=== PATIENT | male | born 1955 | race Caucasian/White ===

== ENCOUNTER 2020-04-22 09:32 | Observation (INO) | payer MEDICARE ==
[2020-04-22] MEDS ORDERED: SODIUM CHLORIDE 0.9% 500 ML 500 ML IV ONE (09:59)
[2020-04-22] MEDS ORDERED: HYDROmorphone 0.5 MG/0.5 ML SYRINGE IVP STA (10:02)
[2020-04-22 10:22] LABS: Basophils # (A) 0.1 k/uL (0-0.2); Basophils % (A) 1 %; Eosinophils # (A) 0.1 k/uL (0-0.7); Eosinophils % (A) 1 %; HCT 51.2 % (39.0-53.0); HGB 17.3 gm/dL (13.0-17.5); Lymphocytes # (A) 0.8 k/uL (1.0-4.8); Lymphocytes % (A) 7 %; MCH 32.8 pg (25.0-35.0); MCHC 33.7 g/dL (31.0-37.0); MCV 97.2 fL (80.0-100.0); Mean Platelet Volume 7.5; Monocytes # (A) 0.4 k/uL (0-1.0); Monocytes % (A) 4 %; Neutrophils # (A) 9.9 k/uL (1.3-7.7); Neutrophils % (A) 87 %; Platelet Count 228 k/uL (150-450); RBC 5.27 m/uL (4.30-5.90); RDW 12.8 % (11.5-15.5); WBC 11.4 k/uL (3.8-10.6)
[2020-04-22 10:30] LABS: INR 2.6 (<1.2); Partial Thromboplastin Time 31.8 sec (22.0-30.0); Prothrombin Time 25.2 sec (9.0-12.0)
--- NOTE | 2020-04-22 10:36 | XR ---
EXAMINATION TYPE: XR chest 2V DATE OF EXAM: 04/22/2020 COMPARISON: Chest x-ray 05/16/2010 HISTORY: Altered mental status, pain from fall TECHNIQUE: Frontal and lateral views of the chest are obtained. FINDINGS: There is no focal air space opacity, pleural effusion, or pneumothorax seen. The cardiac silhouette size is within normal limits. The osseous structures are intact. Overlying leads are not ed. Flattening hemidiaphragms and increased AP diameter chest suggests underlying COPD. There is thor acic spondylosis. IMPRESSION: No acute cardiopulmonary process.
--- NOTE | 2020-04-22 10:37 | XR ---
Thoracic spine HISTORY: Trauma and pain 2 views of the thoracic spine Aorta is dense. There is multilevel thoracic spondylosis. Thoracic vertebral bodies show preserved he ight and alignment. Bone mineralization is maintained. Bridging anterior osteophytes along the thorac ic vertebral bodies with preservation of disc space suggests diffuse idiopathic skeletal hyperostosis . IMPRESSION: No acute fracture or subluxation.
[2020-04-22] MEDS ORDERED: ONDANSETRON 4 MG/2 ML VIAL IVP STA (10:38)
[2020-04-22 10:40] LABS: Anion Gap 17 mmol/L; Blood Urea Nitrogen 14 mg/dL (9-20); Carbon Dioxide 19 mmol/L (22-30); Chloride 101 mmol/L (98-107); Glucose 176 mg/dL (74-99); Sodium 137 mmol/L (137-145)
[2020-04-22 10:41] LABS: ALT 25 U/L (4-49); AST 33 U/L (17-59); African American GFR (CKD) 72 (>60 ml/min/1.73 sqM); Albumin 4.4 g/dL (3.5-5.0); Alcohol <10 mg/dL; Alkaline Phosphatase 66 U/L (38-126); Non-African American GFR(CKD) 63 (>60 ml/min/1.73 sqM); Total Bilirubin 1.4 mg/dL (0.2-1.3); Total Protein 7.5 g/dL (6.3-8.2)
--- NOTE | 2020-04-22 10:42 | ED ---
General Adult HPI - General Chief complaint: Altered Mental Status Stated complaint: altered Time Seen by Provider: 04/22/20 09:35 Source: patient, EMS, RN notes reviewed, old records reviewed Mode of arrival: EMS Limitations: altered mental status - History of Present Illness Initial comments: This a 64-year-old male who presents emergency Department with a past medical history significant for hypertension. Patient was brought into the emergency department because he was altered at home. According to the girlfriend she heard some banging around in the bathroom when she went into see what was going on and he was stumbling around and was not responding to her accurately. EMS was called when EMS arrived he still was altered and according to the patient he does not remember any of this and in fact he states he woke up this morning went back to bed and the next he knows he woke up and admits. Patient complains of back pain which she states she always has but it seems to be worse today and with any movement it increases. Patient denies any headache patient denies numbness weakness. Patient denies any lightheadedness or dizziness. Patient denies any chest pain palpitations difficulty breathing shortness of breath. Patient denies any recent fever chills or cough. Patient denies abdominal pain patient denies nausea vomiting or diarrhea. Patient denies any extremity pain. Patient states any movement with her it's bending or twisting his pretty significant pain in the lower thoracic spine. - Related Data Home Medications Medication Instructions Recorded Confirmed Bumetanide [Bumex] 1 mg PO BID@0700,1500 08/23/15 04/22/20 Doxazosin Mesylate 2 mg PO HS@2300 08/23/15 04/22/20 Isosorbide Mononitrate [Isosorbide 30 mg PO DAILY@69908/23/15 04/22/20 Mononitrate ER] Lisinopril [Prinivil] 5 mg PO HS@2300 08/23/15 04/22/20 Lovastatin [Mevacor] 20 mg PO HS@0 08/23/15 04/22/20 Potassium Chloride [Klor-Con 20] 20 meq PO DAILY@0700 08/23/15 04/22/20 amLODIPine BESYLATE [Norvasc] 10 mg PO DAILY@0700 05/30/16 01/28/21 carvediloL [Coreg] 12.5 mg PO BID@0700,1500 08/23/15 04/22/20 cloNIDine HCL 0.3 mg PO TID@0700,1500,2300 08/23/15 04/22/20 Warfarin Sodium 4 mg PO DAILY@1500 04/22/20 04/22/20 glipiZIDE [Glucotrol] 5 mg PO DAILY@0700 04/22/20 04/22/20 Allergies Allergy/AdvReac Type Severity Reaction Status Date / Time naproxen [From Naprosyn] Allergy Unknown Verified 04/22/20 11:23 Penicillins Allergy Swelling Verified 04/22/20 11:23 Review of Systems ROS Statement: Those systems with pertinent positive or pertinent negative responses have been documented in the HPI. ROS Other: All systems not noted in ROS Statement are negative. Past Medical History Past Medical History: Atrial Fibrillation, Diabetes Mellitus, Hypertension History of Any Multi-Drug Resistant Organisms: None Reported Past Surgical History: Orthopedic Surgery Additional Past Surgical History / Comment(s): caqrpal tunnel Past Psychological History: No Psychological Hx Reported Smoking Status: Never smoker Past Alcohol Use History: None Reported Past Drug Use History: None Reported, Marijuana General Exam - General Exam Comments Initial Comments: GENERAL: Patient is well-developed and well-nourished. Patient is nontoxic and well- hydrated and is in mild distress. ENT: Neck is soft and supple. No significant lymphadenopathy is noted. Oropharynx is clear. Moist mucous membranes. Neck has full range of motion without eliciting any pain. EYES: The sclera were anicteric and conjunctiva were pink and moist. Extraocular movements were intact and pupils were equal round and reactive to light. Eyelids were unremarkable. PULMONARY: Unlabored respirations. Good breath sounds bilaterally. No audible rales rhonchi or wheezing was noted. CARDIOVASCULAR: There is a regular rate and rhythm without any murmurs gallops or rubs. ABDOMEN: Soft and nontender with normal bowel sounds. SKIN: Skin is clear with no lesions or rashes and otherwise unremarkable. NEUROLOGIC: Patient is alert and oriented x3. Cranial nerves II through XII are grossly intact. Motor and sensory are also intact. Normal speech, volume and content. Symmetrical smile. MUSCULOSKELETAL: Normal extremities with adequate strength and full range of motion. No lower extremity swelling or edema. No calf tenderness. Patient has tenderness in the lower thoracic spine there is no area of swelling no redness and signs of trauma. LYMPHATICS: No significant lymphadenopathy is noted PSYCHIATRIC: Normal psychiatric evaluation. Limitations: altered mental status Course Vital Signs 04/22/20 04/22/20 04/22/20 09:37 09:53 10:37 Temperature 98 F Pulse Rate 64 61 57 L Respiratory 18 18 18 Rate Blood Pressure 176/128 131/72 153/79 O2 Sat by Pulse 94 L 94 L 94 L Oximetry 04/22/20 11:20 Temperature Pulse Rate 61 Respiratory 18 Rate Blood Pressure 130/83 O2 Sat by Pulse 93 L Oximetry Medical Decision Making - Medical Decision Making EKG show atrial fibrillation at a rate of 58 bpm QRS is 124 QT interval 464 QTC is 455. Patient's EKG shows no ST segment elevation or depression. After about 2 hours ago from came back and told the story that she found the patient on all fours in the bathroom she is not aware if he fell or not but he was completely confused and told EMS to come from the home. She states she has not seen him like this ever before. CT of the brain shows no acute abnormality. Chest x-ray shows no acute abnormality. T-spine x-ray shows no acute abnormality. - Lab Data Result diagrams: 04/22/20 10:04 04/22/20 10:04 Lab Results 04/22/20 04/22/20 04/22/20 Range/Units 10:04 10:04 10:04 WBC 11.4 H (3.8-10.6) k/uL RBC 5.27 (4.30-5.90) m/uL Hgb 17.3 (13.0-17.5) gm/dL Hct 51.2 (39.0-53.0) % MCV 97.2 (80.0-100.0) fL MCH 32.8 (25.0-35.0) pg MCHC 33.7 (31.0-37.0) g/dL RDW 12.8 (11.5-15.5) % Plt Count 228 (150-450) k/uL MPV 7.5 Neutrophils % 87 % Lymphocytes % 7 % Monocytes % 4 % Eosinophils % 1 % Basophils % 1 % Neutrophils # 9.9 H (1.3-7.7) k/uL Lymphocytes # 0.8 L (1.0-4.8) k/uL Monocytes # 0.4 (0-1.0) k/uL Eosinophils # 0.1 (0-0.7) k/uL Basophils # 0.1 (0-0.2) k/uL PT 25.2 H (9.0-12.0) sec INR 2.6 H (<1.2) APTT 31.8 H (22.0-30.0) sec Sodium 137 (137-145) mmol/L Potassium 4.3 (3.5-5.1) mmol/L Chloride 101 (98-107) mmol/L Carbon Dioxide 19 L (22-30) mmol/L Anion Gap 17 mmol/L BUN 14 (9-20) mg/dL Creatinine 1.21 (0.66-1.25) mg/dL Est GFR (CKD-EPI)AfAm 72 (>60 ml/min/1.73 sqM) Est GFR (CKD-EPI)NonAf 63 (>60 ml/min/1.73 sqM) Glucose 176 H (74-99) mg/dL POC Glucose (mg/dL) (75-99) mg/dL POC Glu Suede Brusher ID Calcium 9.0 (8.4-10.2) mg/dL Total Bilirubin 1.4 H (0.2-1.3) mg/dL AST 33 (17-59) U/L ALT 25 (4-49) U/L Alkaline Phosphatase 66 (38-126) U/L Troponin I (0.000-0.034) ng/mL Total Protein 7.5 (6.3-8.2) g/dL Albumin 4.4 (3.5-5.0) g/dL Serum Alcohol <10 mg/dL 04/22/20 04/22/20 Range/Units 10:04 11:38 WBC (3.8-10.6) k/uL RBC (4.30-5.90) m/uL Hgb (13.0-17.5) gm/dL Hct (39.0-53.0) % MCV (80.0-100.0) fL MCH (25.0-35.0) pg MCHC (31.0-37.0) g/dL RDW (11.5-15.5) % Plt Count (150-450) k/uL MPV Neutrophils % % Lymphocytes % % Monocytes % % Eosinophils % % Basophils % % Neutrophils # (1.3-7.7) k/uL Lymphocytes # (1.0-4.8) k/uL Monocytes # (0-1.0) k/uL Eosinophils # (0-0.7) k/uL Basophils # (0-0.2) k/uL PT (9.0-12.0) sec INR (<1.2) APTT (22.0-30.0) sec Sodium (137-145) mmol/L Potassium (3.5-5.1) mmol/L Chloride (98-107) mmol/L Carbon Dioxide (22-30) mmol/L Anion Gap mmol/L BUN (9-20) mg/dL Creatinine (0.66-1.25) mg/dL Est GFR (CKD-EPI)AfAm (>60 ml/min/1.73 sqM) Est GFR (CKD-EPI)NonAf (>60 ml/min/1.73 sqM) Glucose (74-99) mg/dL POC Glucose (mg/dL) 124 H (75-99) mg/dL POC Glu Suede Brusher ID Bela Camacho Calcium (8.4-10.2) mg/dL Total Bilirubin (0.2-1.3) mg/dL AST (17-59) U/L ALT (4-49) U/L Alkaline Phosphatase (38-126) U/L Troponin I <0.012 (0.000-0.034) ng/mL Total Protein (6.3-8.2) g/dL Albumin (3.5-5.0) g/dL Serum Alcohol mg/dL Disposition Clinical Impression: Altered mental status, Thoracic back pain Disposition: ADMITTED IP TO THIS HOSP Referrals: Herson Holden MD [Primary Care Provider] - 1-2 days Time of Disposition: 12:17
[2020-04-22 10:46] LABS: Potassium 4.3 mmol/L (3.5-5.1)
[2020-04-22 11:40] LABS: Glucose,Whole Blood 124 mg/dL (75-99)
[2020-04-22] MEDS ORDERED: SODIUM CHLORIDE 0.9% 1,000 ML IV ONE (12:17)
--- NOTE | 2020-04-22 12:39 | CT ---
EXAMINATION TYPE: CT brain wo con DATE OF EXAM: 04/22/2020 COMPARISON: None HISTORY: 64-year-old male Fall today with mental status changes. TECHNIQUE: Examination was done in axial plane without intravenous contrast. Coronal and sagittal r econstructions performed. CT DLP: 1202.4 mGycm Automated exposure control for dose reduction was used. FINDINGS: There is no evidence of acute intracranial hemorrhage, acute ischemic changes, mass, mass-effect, or extra-axial fluid collection. There is no effacement of cerebral sulci or basal subarachnoid cister ns. There is no hydrocephalus. There is no midline shift. Loco-white matter distinction is preserv ed. Mild patchy white matter hypodensities in both cerebral hemispheres. Moderate mucosal thickening ethmoid air cells. Moderate mucosal thickening in inferior frontal sinuse s. Leftward nasal septal deviation. Mastoid air cells well pneumatized. Orbits and globes are intact. IMPRESSION: Mild patchy burden of chronic small vessel ischemic disease. No acute intracranial abnormality seen. Moderate chronic ethmoid and frontal sinus disease.
[2020-04-22 13:44] LABS: Amorphous Sediment,Urine Rare /hpf; Appearance,Urine Clear (Clear); Bilirubin,Urine Negative (Negative); Blood,Urine Trace (Negative); Color,Urine Light Yellow; Glucose,Urine (UA) Negative (Negative); Hyaline Casts,Urine 1 /lpf (0-2); Ketones,Urine Negative (Negative); Leukocyte Esterase,Urine Negative (Negative); Mucus,Urine Rare /hpf; Nitrite,Urine Negative (Negative); PH, Urine 6.5 (5.0-8.0); Protein,Urine 2+ (Negative); RBC,Urine 1 /hpf (0-5); Specific Gravity,Urine 1.008 (1.001-1.035); Squamous Epithelial Cell,Urine <1 /hpf (0-4); Urobilinogen,Urine <2.0 mg/dL (<2.0); WBC,Urine 3 /hpf (0-5)
[2020-04-22 13:57] LABS: Amphetamine Screen,Urine Not Detected (NotDetected); Barbiturate Screen,Urine Not Detected (NotDetected); Benzodiazepines Screen,Urine Not Detected (NotDetected); Cocaine Screen,Urine Not Detected (NotDetected); Methadone Screen, Urine Not Detected (NotDetected); Opiate Screen,Urine Not Detected (NotDetected); Oxycodone Screen, Urine Not Detected (NotDetected); Phencyclidine Screen,Urine Not Detected (NotDetected); Tricyclic Antidepressant,Urine Not Detected (NotDetected); Urn Cannabinoid Scrn Detected (NotDetected)
[2020-04-22] MEDS: cloNIDine HCL 0.1 MG TAB PO SCH (15:08)
[2020-04-22] MEDS: BUMETANIDE 1 MG TAB PO SCH (15:08)
[2020-04-22] MEDS: carvediloL 12.5 MG TAB PO SCH (15:08)
[2020-04-22 16:50] LABS: Glucose,Whole Blood 116 mg/dL (75-99)
[2020-04-22] MEDS: INSULIN ASPART (NovoLOG) 100 UNIT/ML VIAL SQ SCH ×2 (16:53→21:02)
[2020-04-22] MEDS: WARFARIN 2 MG TAB PO SCH (17:19)
[2020-04-22 19:54] LABS: Glucose,Whole Blood 130 mg/dL (75-99)
[2020-04-22] MEDS ORDERED: lisinopriL 5 MG TAB PO SCH (21:00)
[2020-04-22] MEDS ORDERED: ATORVASTATIN 10 MG TAB PO SCH (21:00)
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
[2020-04-23] MEDS ORDERED: glipiZIDE 5 MG TAB PO SCH (07:00)
[2020-04-23 07:22] LABS: Glucose,Whole Blood 125 mg/dL (75-99)
[2020-04-23] MEDS: INSULIN ASPART (NovoLOG) 100 UNIT/ML VIAL SQ SCH ×4 (07:57→20:00)
[2020-04-23] MEDS: ISOSORBIDE MONONITRATE ER 30 MG TAB.ER.24H PO SCH (08:30)
[2020-04-23] MEDS: BUMETANIDE 1 MG TAB PO SCH ×2 (08:30→14:56)
[2020-04-23] MEDS: carvediloL 12.5 MG TAB PO SCH ×2 (08:30→14:47)
[2020-04-23] MEDS: cloNIDine HCL 0.1 MG TAB PO SCH ×4 (08:31→22:46)
[2020-04-23] MEDS: POTASSIUM CHLORIDE ER 20 MEQ TAB.ER PO SCH (08:31)
[2020-04-23] MEDS: amLODIPine 10 MG TAB PO SCH (08:34)
[2020-04-23 09:13] LABS: Cholesterol 140 mg/dL (<200); HDL Cholesterol 41 mg/dL (40-60); LDL Cholesterol,Calculated 82 mg/dL (0-99); Triglycerides 83 mg/dL (<150)
[2020-04-23 09:27] LABS: Glucose,Whole Blood 113 mg/dL (75-99)
[2020-04-23 09:40] LABS: INR 2.71 (0.90-1.11); Prothrombin Time 27.7 sec (9.9-11.9)
[2020-04-23 09:54] LABS: Folate, Serum 15.2 ng/mL
--- NOTE | 2020-04-23 11:37 | ECHOF ---
Referral Reason:syncope MEASUREMENTS -------- HEIGHT: 177.8 cm WEIGHT: 104.3 kg BP: 162/73 RVIDd: 3.2 cm (< 3.3) IVSd: 1.4 cm (0.6 - 1.1) LVIDd: 4.7 cm (3.9 - 5.3) LVPWd: 1.6 cm (0.6 - 1.1) IVSs: 2.2 cm LVIDs: 2.8 cm LVPWs: 1.7 cm LA Diam: 4.3 cm (2.7 - 3.8) Ao Diam: 3.5 cm (2.0 - 3.7) AV Cusp: 1.9 cm (1.5 - 2.6) MV EXCURSION: 17.701 mm (> 18.000) MV EF SLOPE: 66 mm/s (70 - 150) EPSS: 0.4 cm AV maxP.72 mmHg AV meanP.90 mmHg FINDINGS -------- Atrial fibrillation. This was a technically adequate study. The left ventricular size is normal. There is moderate concentric left ventricular hypertrophy. O verall left ventricular systolic function is normal with, an EF between 55 - 60 %. Left ventricular fillimg pressure cannot be estimated due to Atrial fibrillation. The right ventricle is normal in size. The left atrium is mildly dilated. The right atrial size is normal. Interatrial and interventricular septum intact. There is mild aortic valve sclerosis. Mild mitral annular calcification present. Mild mitral regurgitation is present. The tricuspid valve appears structurally normal. Mild tricuspid regurgitation present. The pulmonic valve was not well visualized. The aortic root size is normal. Normal inferior vena cava with normal inspiratory collapse consistent with estimated right atrial pre ssure of 5 mmHg. There is no pericardial effusion. CONCLUSIONS -------- 1. There is moderate concentric left ventricular hypertrophy. 2. Overall left ventricular systolic function is normal with, an EF between 55 - 60 %. 3. The left atrium is mildly dilated. 4. There is mild aortic valve sclerosis. 5. Mild mitral annular calcification present. 6. Mild mitral regurgitation is present. 7. Mild tricuspid regurgitation present. 8. There is no pericardial effusion. [employer] WORKER: Dawn Bustillo RDCS
--- NOTE | 2020-04-23 12:02 | US ---
EXAMINATION TYPE: US carotid duplex BILAT DATE OF EXAM: 04/23/2020 COMPARISON: NONE CLINICAL HISTORY: Syncope. Syncope EXAM MEASUREMENTS: RIGHT: Peak Systolic Velocity (PSV) cm/sec ----- Right CCA: 43.3 ----- Right ICA: 58.3 ----- Right ECA: 104.7 ICA/CCA ratio: 1.3 RIGHT: End Diastole cm/sec ----- Right CCA: 6.3 ----- Right ICA: 14.9 ----- Right ECA: 5.0 LEFT: Peak Systolic Velocity (PSV) cm/sec ----- Left CCA: 54.0 ----- Left ICA: 61.0 ----- Left ECA: 11.2 ICA/CCA ratio: 1.1 LEFT: End Diastole cm/sec ----- Left CCA: 12.0 ----- Left ICA: 20.9 ----- Left ECA: 7.6 VERTEBRALS (direction of flow): Right Vertebral: Antegrade Left Vertebral: Antegrade Rhythm: Arrhythmia Mild plaque bilateral bulbs, however no significant stenosis visualized Loco scale, color Doppler , spectral Doppler imaging performed of the carotid arteries. Waveform analysis does not show signifi cant stenosis of the internal carotid arteries. IMPRESSION: No hemodynamic significant stenosis of the proximal internal carotid arteries by Doppler criteria, an indirect measurement of carotid stenosis Criteria for Assigning % of Stenosis / Diameter reduction (Estimation based on the indirect measurements of the internal carotid artery velocities (ICA PSV). 1. Normal (no stenosis)=ICA PSV < 125 cm/s: ratio < 2.0: ICA EDV<40 cm/s. 2. Less than 50% stenosis=ICA PSV < 125 cm/s: ratio < 2.0: ICA EDV<40 cm/s. 3. 50 to 69% stenosis=ICA PSV of 125 to 230 cm/s: ration 2.0 ? 4.0: ICA EDV 40-100 cm/s. 4. Greater than 70% stenosis to near occlusion= ICA PSV > 230 cm/s: ratio > 4.0: ICA EDV > 100 cm/s. 5. Near occlusion= ICA PSV velocities may be low or undetectable: variable ratio and ICA EDV. 6. Total occlusion=unable to detect flow.
[2020-04-23 12:12] LABS: Hemoglobin A1C 6.1 % (4.0-6.0)
[2020-04-23 12:14] LABS: Glucose,Whole Blood 131 mg/dL (75-99)
--- NOTE | 2020-04-23 12:14 | CONS ---
CONSULTATION Mr. Rivera is a 64-year-old male with a history of hypertension, hyperlipidemia, diabetes mellitus, chronic persistent atrial fibrillation who presented with syncopal episode. Apparently, he got up, went to the bathroom, was feeling dizzy prior. After he got up off the commode, he had a syncopal episode. He is not quite sure how long he was out. He denies any tonic clonic activity. He denies loss of bladder control. In the emergency room, he was noted to be in atrial fibrillation with a slow ventricular response, but no evidence of pauses. The patient has not been compliant with his INR monitoring and has not seen his primary care physician on a regular basis. He has not seen the stepdown nurse in a long time. He denies any exertional chest discomfort. He has dyspnea on exertion. No significant peripheral edema. No PND. No orthopnea. He has no prior syncope. He has been told that he has a heart murmur in the past. His coronary risk factors are positive for hypertension, hyperlipidemia, diabetes mellitus. He smokes marijuana. MEDICATIONS: His medications include Glucotrol 5 mg daily, clonidine 0.3 mg 3 times a day, Coreg 12.5 mg twice a day, amlodipine 10 mg daily, Coumadin 4 mg daily, potassium 20 mEq daily, lovastatin 20 mg daily, Prinivil 5 mg daily, isosorbide mononitrate 30 mg daily, doxazosin 2 mg daily, Bumex 1 mg twice a day. REVIEW OF SYSTEMS: RESPIRATORY SYSTEM: He has history of dyspnea on exertion. No recent wheezing or cough. GI SYSTEM: No recent GI bleeding. No peptic ulcer disease. SYSTEM: No dysuria or hematuria. NERVOUS SYSTEM: He denies any history of stroke or seizure. SOCIAL HISTORY: He denies any alcohol use. PHYSICAL EXAMINATION: He is a 64-year-old male, alert, oriented, in no apparent distress. Blood pressure 148/80 with the heart rate in the 50s. HEAD: Normocephalic. EYES: Sclerae anicteric. NECK: Good carotid upstroke. No bruit. No jugular venous distention. LUNGS: Clear to auscultation. HEART: Irregular, irregular. S1, S2. No S3 with systolic murmur 2/6 mid peaking heard at the base. No diastolic murmur. No rub. ABDOMEN: Soft, nontender. Positive bowel sounds. No organomegaly. EXTREMITIES: Chronic discoloration with decreased distal pulses. LAB DATA: Lab data revealed an INR of 2.6, hemoglobin 17.3, white blood cell of 11.4, BUN and creatinine of 14 and 1.2. Potassium 4.3. His troponin less than 0.012. His coronavirus PCR is negative. His EKG revealed atrial fibrillation with left axis deviation and rate of 58 with left ventricular hypertrophy and nonspecific ST-T wave changes. His brain CT revealed no acute bleed with mild patchy burden of chronic small-vessel disease. His chest x-ray shows no acute infiltrate. IMPRESSION: 1. Syncopal episode of unclear etiology, probably orthostatic hypotension, probably exacerbated with a combination of his medical regimen. No clear evidence to suggest significant bradycardia as the etiology although cannot be excluded. 2. Atrial fibrillation with anticoagulated, patient noncompliant with his INR monitoring. 3. History of hypertension. 4. Diabetes. 5. Hyperlipidemia. 6. Aortic valve murmur. 7. Marijuana use. RECOMMENDATION: From the cardiac standpoint, I will decrease the dose of his clonidine and I will increase the dose of his lisinopril. I will obtain an echocardiogram with Doppler. Check his TSH. Increase his activity gradually, monitoring his blood pressure. If remains stable, he may be able to be discharged home to be followed as an outpatient to further evaluate his cardiac rhythm and guide his treatment. I discussed with the patient the importance of close followup regarding his INR and the risk of stroke or bleeding. Thank you for this consult. We will follow with you. MMODL / IJN: [id number] /
[2020-04-23] MEDS: lisinopriL 5 MG TAB PO SCH ×2 (12:30→21:36)
--- NOTE | 2020-04-23 13:52 | P.PN ---
Subjective Progress Note Date: 04/23/20 Principal diagnosis: Syncope Hospital course: Patient is a 64-year-old male with a past medical history of hypertension, hyperlipidemia, atrial fibrillation on Coumadin, [id number] diabetes mellitus type 2, COPD, and daily marijuana use. Patient presented to [facility] on 04/22/20 after reportedly being found by his girlfriend stumbling around in the bathroom in an altered state and not responding appropri ately. Patient does not recall event states he remembers being in the bathroom and feeling dizzy and lightheaded and the next thing he recalls is being in the ambulance. He was admitted for syncope of unclear etiology with concerns of underlying suspected arrhythmia. Physical exam: Patient was seen and fully evaluated at the bedside. RN reports patient had a symptomatic episode in which he became diaphoretic and lightheaded and was found at the same time to have a 2.75 second cardiac pause. Cardiology was contacted at this time and ordered for decrease of clonidine to 0.2 mg 3 times daily. Upon assessment, patient was resting comfortably in bed. He confirms previous episode of diaphoresis and feeling very lightheaded and dizzy but is currently denying any complaints at this time including headache, lightheadedness, dizziness, changes in vision or hearing, chest pain or palpitations, shortness of breath, abdominal pain, nausea, changes in or difficulties with urinary or bowel function, or experiencing any numbness/tingling/weakness/swelling in extremities. Orthostatic vitals obtained yesterday evening negative for orthostatic hypotension, plan to repeat. Neurology and cardiology following. General: non toxic, no distress, appears at stated age Derm: warm, dry, patient has purple colored bruise to right anterior shoulder/axillary region. Head: atraumatic, normocephalic, symmetric Eyes: EOMI, no lid lag, anicteric sclera Mouth: no lip lesion, mucus membranes moist, poor dentition Cardiovascular: Irregularly irregular with bradycardic rate, murmur present, positive posterior tibial pulses bilaterally, chronic venous discoloration in bilateral lower extremities, no edema. Lungs: Respirations even, regular, and unlabored on room air. Lungs CTA bilaterally, no rhonchi, no rales, no wheezes, and no accessory muscle use Abdominal: soft, nontender to palpation, no guarding, no appreciable organomeg berny Ext: no gross muscle atrophy, no edema, no contractures Neuro: Speech clear, sensation and movement intact in all 4 extremities, no focal neuro deficits Psych: Alert, oriented, appropriate affect Assessment and Plan of Care: Syncopal episode, unclear etiology -Syncopal episode likely secondary to suspected arrhythmia vs heart block vs orthostatic hypotension. -CT head negative for acute intracranial process revealing chronic small vessel ischemic disease. -EKG revealed atrial fibrillation with a slow ventricular response accompanied by left anterior fascicular block and left ventricular hypertrophy. -Carotid Dopplers negative for significant stenosis. -Echocardiogram revealing a preserved EF of 55-60%. -Vitamin B12, folate, and TSH all normal findings. -Cardiology following and decreased clonidine to 0.2 mg 3 times a day secondary to recurrent symptomatic cardiac pauses lasting 2.5 seconds and 2.75 seconds. Appreciate further recommendations. -Neurology following appreciate further recommendations. -Orthostatic vitals negative for orthostatic hypotension, will repeat. -Telemetry monitoring -Fall precautions Atrial fibrillation with a slow ventricular response on anticoagulation -EKG revealed atrial fibrillation with a slow ventricular response accompanied by left anterior fascicular block and left ventricular hypertrophy. -Continue warfarin. INR therapeutic at 2.71. -Telemetry monitoring [id number] diabetes mellitus type 2 -Hemoglobin A1c 6.1. -Hold oral glycemic medications and Patient placed on glycemic protocol with NovoLog sliding scale. COPD, not home oxygen dependent -Encourage Incentive spirometry 10-15 times hourly while awake. -Supplemental oxygen as needed to maintain SpO2 equal to or greater than 92%. Marijuana use/abuse -Encouraged cessation and explained risks of continued use of smoking marijuana especially with his underlying COPD Hypertension -Monitor vital signs and continue daily medication regimen with amlodipine, carvedilol, clonidine, isosorbide mononitrate, and lisinopril. Hyperlipidemia -Continue daily medication regimen with atorvastatin 20 mg nightly. CODE STATUS: Full code DVT prophylaxis: Coumadin Discussed with: patient and RN Anticipated discharge date: 1-[address]: Home A total of 45 minutes was spent on the care of this complex patient more than 50% of the time was spent in counseling and care coordination. Objective - Vital Signs Vital signs: Vital Signs Temp 98.2 F 04/23/20 08:00 Pulse 56 L 04/23/20 11:43 Resp 18 04/23/20 08:00 BP 149/72 04/23/20 11:43 Pulse Ox 93 L 04/23/20 08:00 Intake & Output 04/22/20 04/23/20 04/23/20 18:59 06:59 18:59 Intake Total 296 360 Balance 296 360 Weight 104.326 kg Intake: Oral 296 360 Other: # Voids 1 3 - Labs CBC & Chem 7: 04/22/20 10:04 04/22/20 10:04 Labs: Abnormal Lab Results - Last 24 Hours (Table) 04/22/20 04/22/20 04/22/20 Range/Units 13:17 16:49 19:53 PT (9.9-11.9) sec INR (0.90-1.11) POC Glucose (mg/dL) 116 H 130 H (75-99) mg/dL Hemoglobin A1c (4.0-6.0) % Urine Protein 2+ H (Negative) Urine Blood Trace H (Negative) Amorphous Sediment Rare H (None) /hpf Urine Mucus Rare H (None) /hpf U Marijuana (THC) Screen Detected H (NotDetected) 04/23/20 04/23/20 04/23/20 Range/Units 04:29 04:29 07:19 PT 27.7 H (9.9-11.9) sec INR 2.71 H (0.90-1.11) POC Glucose (mg/dL) 125 H (75-99) mg/dL Hemoglobin A1c 6.1 H (4.0-6.0) % Urine Protein (Negative) Urine Blood (Negative) Amorphous Sediment (None) /hpf Urine Mucus (None) /hpf U Marijuana (THC) Screen (NotDetected) 04/23/20 04/23/20 Range/Units 09:24 12:11 PT (9.9-11.9) sec INR (0.90-1.11) POC Glucose (mg/dL) 113 H 131 H (75-99) mg/dL Hemoglobin A1c (4.0-6.0) % Urine Protein (Negative) Urine Blood (Negative) Amorphous Sediment (None) /hpf Urine Mucus (None) /hpf U Marijuana (THC) Screen (NotDetected)
--- NOTE | 2020-04-23 14:40 | P.PN ---
Subjective Progress Note Date: 04/23/20 Patient offers no complaints. Laying comfortably in the bed. No more syncopal spells. Telemetry monitoring showing sinus rhythm. Sinus bradycardia going down to 30s and 40s. Patient does have atrial fibrillation with pauses. Objective - Vital Signs Vital signs: Vital Signs Temp 98.2 F 04/23/20 08:00 Pulse 56 L 04/23/20 11:43 Resp 18 04/23/20 08:00 BP 149/72 04/23/20 11:43 Pulse Ox 93 L 04/23/20 08:00 Intake & Output 04/22/20 04/23/20 04/23/20 18:59 06:59 18:59 Intake Total 296 600 Balance 296 600 Weight 104.326 kg Intake: Oral 296 600 Other: # Voids 1 3 - Exam Patient's mentation, speech and language function are normal. Cranial nerves are normal. Muscle strength normal. Gait normal. - Labs CBC & Chem 7: 04/22/20 10:04 04/22/20 10:04 Labs: Abnormal Lab Results - Last 24 Hours (Table) 04/22/20 04/22/20 04/23/20 Range/Units 16:49 19:53 04:29 PT 27.7 H (9.9-11.9) sec INR 2.71 H (0.90-1.11) POC Glucose (mg/dL) 116 H 130 H (75-99) mg/dL Hemoglobin A1c (4.0-6.0) % 04/23/20 04/23/20 04/23/20 Range/Units 04:29 07:19 09:24 PT (9.9-11.9) sec INR (0.90-1.11) POC Glucose (mg/dL) 125 H 113 H (75-99) mg/dL Hemoglobin A1c 6.1 H (4.0-6.0) % 04/23/20 Range/Units 12:11 PT (9.9-11.9) sec INR (0.90-1.11) POC Glucose (mg/dL) 131 H (75-99) mg/dL Hemoglobin A1c (4.0-6.0) % Assessment and Plan Assessment: * Syncopal spell, exact cause is uncertain. Differential includes hypoglycemia, arrhythmia versus vasovagal syncope. Probably not a seizure. * Diabetes * Atrial fibrillation, on anticoagulation with warfarin, INR therapeutic. * Bradycardia * Hypertension Plan: * Telemetry monitoring showing atrial fibrillation, with heart rate in 30s and 40s. Patient probably had arrhythmia leading to syncope. May consider Holter monitoring or event monitoring. * Hemoglobin A1c 6.1, TSH 1.04, B12 382, folate 15.2 * Carotid Doppler showed no significant stenosis. Antegrade flow in both vertebral arteries. * 2-D echo showed moderate concentric LVH, EF is 55-60%. Left atrium is mildly dilated. * Cardiology will follow for A. fib with slow ventricular response. * Neurologically no other workup indicated. Neurology will sign off.
[2020-04-23] MEDS: WARFARIN 2 MG TAB PO SCH (14:53)
[2020-04-23 17:10] LABS: Glucose,Whole Blood 124 mg/dL (75-99)
[2020-04-23 19:56] LABS: Glucose,Whole Blood 124 mg/dL (75-99)
[2020-04-23] MEDS: ATORVASTATIN 20 MG TAB PO SCH (19:59)
[2020-04-23] MEDS: DOXAZOSIN 2 MG TAB PO SCH ×2 (22:46)
[2020-04-24] MEDS: amLODIPine 10 MG TAB PO SCH (07:08)
[2020-04-24] MEDS: cloNIDine HCL 0.1 MG TAB PO SCH ×3 (07:08→20:45)
[2020-04-24] MEDS: BUMETANIDE 1 MG TAB PO SCH ×2 (07:08→15:27)
[2020-04-24] MEDS: ISOSORBIDE MONONITRATE ER 30 MG TAB.ER.24H PO SCH (07:08)
[2020-04-24] MEDS: POTASSIUM CHLORIDE ER 20 MEQ TAB.ER PO SCH (07:08)
[2020-04-24 07:09] LABS: Glucose,Whole Blood 113 mg/dL (75-99)
[2020-04-24] MEDS: lisinopriL 5 MG TAB PO SCH ×2 (07:09→20:45)
[2020-04-24] MEDS: carvediloL 12.5 MG TAB PO SCH (07:09)
--- NOTE | 2020-04-24 07:44 | P.PN ---
Subjective Progress Note Date: 04/24/20 Principal diagnosis: Bradycardia This is a very pleasant 64-year-old gentleman with a past medical history significant for hypertension and dyslipidemia and permanent atrial fibrillation who was admitted to the hospital with syncopal episode and bradycardia. The patient was receiving clonidine and the dose was decreased. The heart rate has been in the 60s. No significant bradycardia noted throughout the night. The patient is asymptomatic from a cardiovascular standpoint of view. At this point I am going to get the patient up and around and if he is asymptomatic he possibly can be discharged home. Objective - Vital Signs Vital signs: Vital Signs Temp 98.0 F 04/24/20 02:00 Pulse 62 04/24/20 02:00 Resp 17 04/24/20 02:00 BP 148/84 04/24/20 02:00 Pulse Ox 99 04/24/20 02:00 Intake & Output 04/23/20 04/24/20 04/24/20 18:59 06:59 18:59 Intake Total 840 Balance 840 Intake: Oral 840 Other: Voiding Method Toilet # Voids 1 - Constitutional General appearance: Present: no acute distress - Respiratory Respiratory: bilateral: CTA - Cardiovascular Rhythm: irregularly irregular Heart sounds: normal: S1, S2 - Labs CBC & Chem 7: 04/22/20 10:04 04/22/20 10:04 Labs: Abnormal Lab Results - Last 24 Hours (Table) 04/23/20 04/23/20 04/23/20 Range/Units 04:29 04:29 09:24 PT 27.7 H (9.9-11.9) sec INR 2.71 H (0.90-1.11) POC Glucose (mg/dL) 113 H (75-99) mg/dL Hemoglobin A1c 6.1 H (4.0-6.0) % 04/23/20 04/23/20 04/23/20 Range/Units 12:11 17:08 19:54 PT (9.9-11.9) sec INR (0.90-1.11) POC Glucose (mg/dL) 131 H 124 H 124 H (75-99) mg/dL Hemoglobin A1c (4.0-6.0) % 04/24/20 Range/Units 06:58 PT (9.9-11.9) sec INR (0.90-1.11) POC Glucose (mg/dL) 113 H (75-99) mg/dL Hemoglobin A1c (4.0-6.0) % Assessment and Plan Assessment: Assessment #1 syncopal episode #2 bradycardia #3 permanent atrial fibrillation Plan #1 continue the current medical regimen #2 event monitor as an outpatient #3 get the patient up and around and possible discharge home later on today
[2020-04-24 09:12] LABS: INR 3.05 (0.90-1.11); Prothrombin Time 30.9 sec (9.9-11.9)
[2020-04-24] MEDS: INSULIN ASPART (NovoLOG) 100 UNIT/ML VIAL SQ SCH ×4 (10:04→20:45)
--- NOTE | 2020-04-24 10:18 | P.PN ---
Subjective Progress Note Date: 04/24/20 Patient is doing well today. He denies any complaints or concerns. No dizziness. His heart rate on the monitor prior to my evaluation was running in the 40s and low 50s. Patient had an episode of sinus pause 2.3 second around 240 in the morning. His clonidine dose was decreased by cardiology to 0.2 mg 3 times a day down from 3 mg 3 times a day originally. Patient is also maintained on Coreg 12.5 mg twice daily. Objective - Vital Signs Vital signs: Vital Signs Temp 97.9 F 04/24/20 07:07 Pulse 65 04/24/20 08:00 Resp 16 04/24/20 08:00 BP 151/83 04/24/20 07:07 Pulse Ox 97 04/24/20 07:07 Intake & Output 04/23/20 04/24/20 04/24/20 18:59 06:59 18:59 Intake Total 840 200 Balance 840 200 Intake: Oral 840 200 Other: Voiding Method Toilet Toilet # Voids 1 - Exam General: The patient is awake and alert, in no distress Eye: there is normal conjunctiva bilaterally. Neck: The neck is supple, there is no JVD. Cardiovascular: Normal S1-S2, no S3-S4, no murmurs. Respiratory: Lungs clear to auscultation bilaterally Gastrointestinal: Abdomen is soft, nontender Musculoskeletal: There is no pedal edema. Neurological:. Speech is normal. Skin: Skin is warm and dry - Labs CBC & Chem 7: 04/22/20 10:04 04/22/20 10:04 Labs: Abnormal Lab Results - Last 24 Hours (Table) 04/23/20 04/23/20 04/23/20 Range/Units 04:29 12:11 17:08 PT (9.9-11.9) sec INR (0.90-1.11) POC Glucose (mg/dL) 131 H 124 H (75-99) mg/dL Hemoglobin A1c 6.1 H (4.0-6.0) % 04/23/20 04/24/20 04/24/20 Range/Units 19:54 05:46 06:58 PT 30.9 H (9.9-11.9) sec INR 3.05 H (0.90-1.11) POC Glucose (mg/dL) 124 H 113 H (75-99) mg/dL Hemoglobin A1c (4.0-6.0) % Assessment and Plan Assessment: Patient is a 64-year-old male with a past medical history of hypertension, hyperlipidemia, atrial fibrillation on Coumadin, [id number] diabetes mellitus type 2, COPD, and daily marijuana use. Patient presented to [facility] on 04/22/20 after reportedly being found by his girlfriend stumbling around in the bathroom in an altered state and not responding appropriately. Patient does not recall event states he remembers being in the bathroom and feeling dizzy and lightheaded and the next thing he recalls is being in the ambulance. He was admitted for syncope of unclear etiology with concerns of underlying suspected arrhythmia. Assessment and Plan of Care: Syncopal episode, unclear etiology -Syncopal episode likely secondary to suspected arrhythmia/bradycardia vs orthostatic hypotension. -CT head negative for acute intracranial process revealing chronic small vessel ischemic disease. -EKG revealed atrial fibrillation with a slow ventricular response accompanied by left anterior fascicular block and left ventricular hypertrophy. -Carotid Dopplers negative for significant stenosis. -Echocardiogram revealing a preserved EF of 55-60%. -Vitamin B12, folate, and TSH all normal findings. -Cardiology and neurology following. Appreciate recommendations. -Orthostatic vitals negative for orthostatic hypotension, will repeat. -Telemetry monitoring -Fall precautions Bradycardia with multiple sinus pauses during this admission -I would decrease clonidine dose to 0.1 mg twice daily -Decrease Coreg dose to 6.25 mg twice daily Atrial fibrillation with a slow ventricular response on anticoagulation -EKG revealed atrial fibrillation with a slow ventricular response accompanied by left anterior fascicular block and left ventricular hypertrophy. -Continue warfarin pharmacy to dose -Telemetry monitoring [id number] diabetes mellitus type 2 -Hemoglobin A1c 6.1. -Hold oral glycemic medications and Patient placed on glycemic protocol with NovoLog sliding scale. COPD, not home oxygen dependent -Encourage Incentive spirometry 10-15 times hourly while awake. -Supplemental oxygen as needed to maintain SpO2 equal to or greater than 92%. Marijuana use/abuse -Encouraged cessation and explained risks of continued use of smoking marijuana especially with his underlying COPD Hypertension -Monitor vital signs and continue daily medication regimen with amlodipine, carvedilol, clonidine, isosorbide mononitrate, and lisinopril. Hyperlipidemia -Continue daily medication regimen with atorvastatin 20 mg nightly. CODE STATUS: Full code DVT prophylaxis: Coumadin Discussed with: patient and RN Anticipated discharge date: Tomorrow Anticipated discharge place: Home A total of 45 minutes was spent on the care of this complex patient more than 50% of the time was spent in counseling and care coordination.
[2020-04-24 12:36] LABS: Glucose,Whole Blood 73 mg/dL (75-99)
[2020-04-24] MEDS ORDERED: WARFARIN 3 MG TAB PO ONE (15:00)
[2020-04-24 17:47] LABS: Glucose,Whole Blood 113 mg/dL (75-99)
[2020-04-24] MEDS: carvediloL 6.25 MG TAB PO SCH (17:55)
[2020-04-24 20:41] LABS: Glucose,Whole Blood 133 mg/dL (75-99)
[2020-04-24] MEDS: ATORVASTATIN 20 MG TAB PO SCH (20:45)
[2020-04-25] MEDS: DOXAZOSIN 2 MG TAB PO SCH (00:57)
[2020-04-25 08:09] LABS: Glucose,Whole Blood 120 mg/dL (75-99)
--- NOTE | 2020-04-25 08:37 | P.PN ---
Subjective Progress Note Date: 04/25/20 Principal diagnosis: Bradycardia This is a very pleasant 64-year-old gentleman with a past medical history significant for hypertension and dyslipidemia and permanent atrial fibrillation who was admitted to the hospital with syncopal episode and bradycardia. The patient was seen today. He is a stable. He is asymptomatic. From a cardiovascular standpoint of view, the patient can be discharged home. No significant bradycardia arrhythmia noted overnight and no significant sinus pauses of sinus arrest. The patient would like to be discharged home. Objective - Vital Signs Vital signs: Vital Signs Temp 98.1 F 04/25/20 01:23 Pulse 61 04/25/20 01:23 Resp 17 04/25/20 01:23 BP 173/83 04/25/20 01:23 Pulse Ox 98 04/25/20 01:23 Intake & Output 04/24/20 04/25/20 04/25/20 18:59 06:59 18:59 Intake Total 500 240 Balance 500 240 Intake: Oral 500 240 Other: Voiding Method Toilet Toilet # Voids 3 1 - Constitutional General appearance: Present: no acute distress - Respiratory Respiratory: bilateral: CTA - Cardiovascular Rhythm: irregularly irregular Heart sounds: normal: S1, S2 - Labs CBC & Chem 7: 04/22/20 10:04 04/22/20 10:04 Labs: Abnormal Lab Results - Last 24 Hours (Table) 04/24/20 04/24/20 04/24/20 Range/Units 05:46 12:34 17:45 PT 30.9 H (9.9-11.9) sec INR 3.05 H (0.90-1.11) POC Glucose (mg/dL) 73 L 113 H (75-99) mg/dL 04/24/20 04/25/20 Range/Units 20:40 07:50 PT (9.9-11.9) sec INR (0.90-1.11) POC Glucose (mg/dL) 133 H 120 H (75-99) mg/dL Assessment and Plan Assessment: Assessment #1 syncopal episode #2 bradycardia #3 permanent atrial fibrillation Plan #1 continue the current medical regimen #2 event monitor as an outpatient #3 DC home today
--- NOTE | 2020-04-25 09:08 | P.DS ---
Providers Date of admission: 04/22/20 12:20 Expected date of discharge: 04/25/20 Attending physician: Avery Caraballo MD Consults: 04/22/20 12:17 Consult Physician Urgent Consulting Provider: Justin Abraham Consult Reason/Comments: Altered mental status Do you want consulting provider notified?: Yes 04/23/20 02:17 Consult Physician Urgent Consulting Provider: Robert Hough Consult Reason/Comments: syncope, afib w/ svr Do you want consulting provider notified?: Yes Primary care physician: Herson Holden MD Hospital Course: Patient is a 64-year-old male with a past medical history noted below presented to [facility] on 04/22/20 with a syncopal episode. Patient was evaluated in the ER and admitted to the hospital for further management of his medical problems noted below. Syncopal episode -Syncopal episode likely secondary to suspected bradycardia with frequent sinus pauses -His medication regimen was adjusted and clonidine dose was decreased from 0.3 mg 3 times a day to 0.1 mg twice daily. Coreg dose decreased to 6.25 mg twice daily -CT head negative for acute intracranial process revealing chronic small vessel ischemic disease. -EKG revealed atrial fibrillation with a slow ventricular response accompanied by left anterior fascicular block and left ventricular hypertrophy. -Carotid Dopplers negative for significant stenosis. -Echocardiogram revealing a preserved EF of 55-60%. -Vitamin B12, folate, and TSH all normal findings. -Cardiology and neurology consulted. -Orthostatic vitals negative for orthostatic hypotension Bradycardia with multiple sinus pauses during this admission -Home regimen adjusted as above Atrial fibrillation with a slow ventricular response on anticoagulation -On anticoagulation with Coumadin [id number]-nnsjnwoek diabetes mellitus type 2 -Hemoglobin A1c 6.1. -Resume medications COPD, not home oxygen dependent Marijuana use/abuse -Encouraged cessation Hypertension -clonidine dose was decreased from 0.3 mg 3 times a day to 0.1 mg twice daily. Coreg dose decreased to 6.25 mg twice daily -Encouraged patient to discuss with his PCP weaning clonidine completely -Lisinopril dose adjusted to 20 mg once daily Hyperlipidemia Patient will be discharged home in a stable condition. For further details about this hospitalization please refer to the electronic chart. Time spent on discharge > 30 minutes including counseling and coordination of care Patient Condition at Discharge: Fair Plan - Discharge Summary Discharge Rx Participant: No New Discharge Prescriptions: New cloNIDine HCL [Catapres] 0.1 mg PO BID #60 tab carvediloL [Coreg] 6.25 mg PO BID-W/MEALS #60 tab lisinopriL 20 mg PO DAILY #30 tab Continue amLODIPine BESYLATE [Norvasc] 10 mg PO DAILY@0700 Lovastatin [Mevacor] 20 mg PO HS@2300 Bumetanide [BUMEX] 1 mg PO BID@0700,1500 Potassium Chloride [Klor-Con 20] 20 meq PO DAILY@0700 Isosorbide Mononitrate [Isosorbide Mononitrate ER] 30 mg PO DAILY@0700 Doxazosin Mesylate 2 mg PO HS@2300 glipiZIDE [Glucotrol] 5 mg PO DAILY@0700 Warfarin Sodium 4 mg PO DAILY@1500 Discontinued Lisinopril [Prinivil] 5 mg PO HS@2300 carvediloL [Coreg] 12.5 mg PO BID@0700,1500 cloNIDine HCL 0.3 mg PO TID@0700,1500,2300 Discharge Medication List Bumetanide [BUMEX] 1 mg PO BID@0700,1500 08/23/15 [History] Doxazosin Mesylate 2 mg PO HS@2300 08/23/15 [History] Isosorbide Mononitrate [Isosorbide Mononitrate ER] 30 mg PO DAILY@0700 08/23/15 [History] Lovastatin [Mevacor] 20 mg PO HS@2300 08/23/15 [History] Potassium Chloride [Klor-Con 20] 20 meq PO DAILY@0700 08/23/15 [History] amLODIPine BESYLATE [Norvasc] 10 mg PO DAILY@0700 08/23/15 [History] Warfarin Sodium 4 mg PO DAILY@1500 04/22/20 [History] glipiZIDE [Glucotrol] 5 mg PO DAILY@0700 04/22/20 [History] carvediloL [Coreg] 6.25 mg PO BID-W/MEALS #60 tab 04/25/20 [Rx] cloNIDine HCL [Catapres] 0.1 mg PO BID #60 tab 04/25/20 [Rx] lisinopriL 20 mg PO DAILY #30 tab 04/25/20 [Rx] Follow up Appointment(s)/Referral(s): Homa Flood MD [STAFF PHYSICIAN] - 2 Weeks Herson Holden MD [Primary Care Provider] - 1-2 days Discharge Disposition: HOME SELF-CARE
[2020-04-25] MEDS: POTASSIUM CHLORIDE ER 20 MEQ TAB.ER PO SCH (09:15)
[2020-04-25] MEDS: amLODIPine 10 MG TAB PO SCH (09:15)
[2020-04-25] MEDS: carvediloL 6.25 MG TAB PO SCH (09:15)
[2020-04-25] MEDS: ISOSORBIDE MONONITRATE ER 30 MG TAB.ER.24H PO SCH (09:15)
[2020-04-25] MEDS: cloNIDine HCL 0.1 MG TAB PO SCH (09:16)
[2020-04-25] MEDS: lisinopriL 5 MG TAB PO SCH (09:16)
[2020-04-25] MEDS: INSULIN ASPART (NovoLOG) 100 UNIT/ML VIAL SQ SCH (09:19)
[2020-04-25] MEDS: BUMETANIDE 1 MG TAB PO SCH (09:22)
[2020-04-25 10:03] VITALS: BP 164/84; PULSE 72; RESP 16; TEMP 98
[2020-04-25 12:06] LABS: African American GFR (CKD) 81.2 (60.0-200.0); Anion Gap 8.3 mmol/L (4.00-12.00); BUN/Creat Ratio 17.27 Ratio (12.00-20.00); Calcium 9.2 mg/dL (8.7-10.3); Carbon Dioxide 29.7 mmol/L (21.6-31.8); Magnesium 1.8 mg/dL (1.5-2.4); Non-African American GFR(CKD) 70.1 (60.0-200.0); Potassium 3.8 mmol/L (3.5-5.5)
== END 2020-04-25 10:40 | disposition home or self-care (01) ==
LOC: EC 09:32 → 6NMEDSUR 12:20
PROVIDERS: ADMIT Internal Medicine; ATTEND Internal Medicine
DX: R55 Syncope and collapse (principal); R00.1 Bradycardia, unspecified; I48.21 Permanent atrial fibrillation; R41.82 Altered mental status, unspecified; E11.649 Type 2 diabetes mellitus with hypoglycemia without coma; E78.5 Hyperlipidemia, unspecified; F12.90 Cannabis use, unspecified, uncomplicated; I11.0 Hypertensive heart disease with heart failure; I44.4 Left anterior fascicular block; I50.9 Heart failure, unspecified; J44.9 Chronic obstructive pulmonary disease, unspecified; Z79.01 Long term (current) use of anticoagulants; Z79.84 Long term (current) use of oral hypoglycemic drugs; Z20.822 Contact with and (suspected) exposure to COVID-19; Z79.899 Other long term (current) drug therapy; Z80.7 Family history of other malignant neoplasms of lymphoid, hematopoietic and related tissues; Z82.49 Family history of ischemic heart disease and other diseases of the circulatory system; Z83.3 Family history of diabetes mellitus; Z87.891 Personal history of nicotine dependence; Z91.19 Patient's noncompliance with other medical treatment and regimen
CPT/HCPCS: 96361; 96374; 99285; 36415; 93005; 93306; 80061; 80053; 80048; 84443; 82607; 82746; 83735; 84484; 85025; 85610 ×3; 85730; 81001; 80306; 83036; 87635; 72070; 71046; 93880; 70450; G0378 ×4; G0480; J1170; 80320

== ENCOUNTER 2020-10-22 16:20 | Inpatient (IN) | payer MEDICARE ==
[2020-10-22 16:25] LABS: Glucose,Whole Blood 146 mg/dL (75-99)
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
[2020-10-22] MEDS ORDERED: LORazepam 2 MG/ML INJ IV STA (16:35)
[2020-10-22 16:40] LABS: Basophils % (A) 0 %; Eosinophils % (A) 0 %; HCT 48.9 % (39.0-53.0); HGB 15.7 gm/dL (13.0-17.5); Lymphocytes # (A) 2.3 k/uL (1.0-4.8); Lymphocytes % (A) 14 %; MCH 33.6 pg (25.0-35.0); MCHC 32.2 g/dL (31.0-37.0); MCV 104.2 fL (80.0-100.0); Macrocytosis Slight; Mean Platelet Volume 7.2; Monocytes # (A) 0.4 k/uL (0-1.0); Monocytes % (A) 3 %; Neutrophils # (A) 12.8 k/uL (1.3-7.7); Neutrophils % (A) 81 %; Platelet Count 271 k/uL (150-450); RBC 4.69 m/uL (4.30-5.90); RDW 13.4 % (11.5-15.5); WBC 15.8 k/uL (3.8-10.6)
[2020-10-22 16:48] LABS: INR 3.5 (<1.2); Partial Thromboplastin Time 31.9 sec (22.0-30.0); Prothrombin Time 33.2 sec (9.0-12.0)
--- NOTE | 2020-10-22 16:59 | CT ---
EXAM: CT brain wo con CLINICAL HISTORY: New onset seizure. COMPARISON: 04/22/2020 TECHNIQUE: Contiguous axial noncontrast images of the brain were obtained. Coronal and sagittal refor mats were generated and reviewed. Automated dose control was used for this exam. FINDINGS: There is no evidence for intracranial hemorrhage, mass effect or midline shift. There is mild white m atter disease. Ventricular size and configuration is within normal limits for degree of parenchymal volume. The paranasal sinuses are clear. The mastoid air cells are clear. No evidence for calvarial fracture. IMPRESSION: No acute intracranial abnormality.
[2020-10-22 17:04] LABS: AST 37 U/L (17-59); Acetaminophen <10.0 ug/mL; African American GFR (CKD) 81 (>60 ml/min/1.73 sqM); Albumin 4.5 g/dL (3.5-5.0); Alcohol <10 mg/dL; Alkaline Phosphatase 85 U/L (38-126); Anion Gap 25 mmol/L; Blood Urea Nitrogen 15 mg/dL (9-20); Calcium 8.9 mg/dL (8.4-10.2); Carbon Dioxide 13 mmol/L (22-30); Chloride 102 mmol/L (98-107); Glucose 161 mg/dL (74-99); Magnesium 2.1 mg/dL (1.6-2.3); Non-African American GFR(CKD) 70 (>60 ml/min/1.73 sqM); Potassium 3.9 mmol/L (3.5-5.1); Salicylate <1.0 mg/dL; Sodium 140 mmol/L (137-145); Total Protein 7.3 g/dL (6.3-8.2)
[2020-10-22 17:14] LABS: ALT 29 U/L (4-49)
[2020-10-22 18:21] LABS: Amphetamine Screen,Urine Not Detected (NotDetected); Barbiturate Screen,Urine Not Detected (NotDetected); Benzodiazepines Screen,Urine Not Detected (NotDetected); Cocaine Screen,Urine Not Detected (NotDetected); Methadone Screen, Urine Not Detected (NotDetected); Opiate Screen,Urine Not Detected (NotDetected); Oxycodone Screen, Urine Not Detected (NotDetected); Phencyclidine Screen,Urine Not Detected (NotDetected); Tricyclic Antidepressant,Urine Not Detected (NotDetected); Urn Cannabinoid Scrn Detected (NotDetected)
--- NOTE | 2020-10-22 18:53 | XR ---
EXAMINATION TYPE: XR chest 1V portable DATE OF EXAM: 10/22/2020 COMPARISON: 04/22/2020 HISTORY: Seizure TECHNIQUE: Single frontal view of the chest is obtained. FINDINGS: Prominence of the pulmonary arteries and evidence of mild cardiomegaly. No pneumothorax. N o focal infiltrate. Limitation of the left lung base due to technique. Hyperinflation suggests COPD. IMPRESSION: No definite acute process. Cardiomegaly and enlarged pulmonary arteries suggestive of pu lmonary arterial hypertension correlate clinically. Findings similar to prior exam.
[2020-10-22] MEDS ORDERED: NALOXONE 0.4 MG/ML 1 ML VIAL IV PRN (18:54)
[2020-10-22] MEDS ORDERED: LORazepam 2 MG/ML INJ IV PRN (18:55)
[2020-10-22] MEDS ORDERED: SODIUM CHLORIDE 0.9% 1,000 ML IV ONE (19:08)
[2020-10-22] MEDS: SODIUM CHLORIDE 0.9% 1,000 ML IV SCH (19:09)
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
[2020-10-23 07:02] LABS: HCT 47.3 % (39.0-53.0); HGB 15.7 gm/dL (13.0-17.5); MCH 33.2 pg (25.0-35.0); MCHC 33.2 g/dL (31.0-37.0); Mean Platelet Volume 7.4; Platelet Count 242 k/uL (150-450); RBC 4.73 m/uL (4.30-5.90); RDW 12.9 % (11.5-15.5); WBC 13.5 k/uL (3.8-10.6)
[2020-10-23] MEDS: lisinopriL 20 MG TAB PO SCH (07:49)
[2020-10-23] MEDS: carvediloL 12.5 MG TAB PO SCH ×2 (07:49→21:46)
[2020-10-23] MEDS: ISOSORBIDE MONONITRATE ER 30 MG TAB.ER.24H PO SCH (07:49)
[2020-10-23] MEDS: amLODIPine 10 MG TAB PO SCH (07:49)
[2020-10-23] MEDS: INSULIN ASPART (NovoLOG) 100 UNIT/ML VIAL SQ SCH ×4 (07:51→21:43)
[2020-10-23 07:53] LABS: Glucose,Whole Blood 107 mg/dL (75-99)
[2020-10-23] MEDS: BUMETANIDE 1 MG TAB PO SCH ×2 (09:23→15:42)
[2020-10-23 12:27] LABS: Glucose,Whole Blood 114 mg/dL (75-99)
[2020-10-23 12:54] LABS: African American GFR (CKD) 102.8 (60.0-200.0); Anion Gap 7.3 mmol/L (4.00-12.00); BUN/Creat Ratio 14.44 Ratio (12.00-20.00); Calcium 8.4 mg/dL (8.7-10.3); Carbon Dioxide 27.7 mmol/L (21.6-31.8); Non-African American GFR(CKD) 88.7 (60.0-200.0); Potassium 3.1 mmol/L (3.5-5.5)
[2020-10-23 13:27] VITALS: BMI 33.7
[2020-10-23 13:45] LABS: Hemoglobin A1C 5.6 % (4.0-6.0)
--- NOTE | 2020-10-23 13:54 | P.PN ---
Subjective Progress Note Date: 10/23/20 No new complaints. Symptoms have resolved. No further seizures. Objective - Vital Signs Vital signs: Vital Signs Temp 98.2 F 10/23/20 11:17 Pulse 60 10/23/20 11:17 Resp 18 10/23/20 11:17 BP 151/81 10/23/20 11:17 Pulse Ox 95 10/23/20 11:17 Intake & Output 10/22/20 10/23/20 10/23/20 18:59 06:59 18:59 Output Total 1200 1000 Balance -1200 -1000 Weight 106.821 kg 106.821 kg 106.821 kg Output: Urine 1200 1000 Other: Voiding Method Toilet Toilet Urinal Urinal # Bowel Movements 1 - Exam nGen: awake, alert HEENT: normocephalic, atraumatic, good hearing acuity, moist mucous membranes Resp: good air exchange, breathing comfortably with no accessory muscle use, CTAB CVS: good distal perfusion x 4, RRR, no murmus GI: soft, NTTP, ND : no SPT, no CVAT, nick catheter not] present MSK: no pitting edema, no clubbing Neuro: non-focal, moving all extremities Psych: cooperative, euthymic mood - Labs CBC & Chem 7: 10/23/20 06:43 10/23/20 06:43 Labs: Abnormal Lab Results - Last 24 Hours (Table) 10/22/20 10/22/20 10/22/20 Range/Units 16:24 16:29 16:29 WBC 15.8 H (3.8-10.6) k/uL MCV 104.2 H (80.0-100.0) fL Neutrophils # 12.8 H (1.3-7.7) k/uL PT 33.2 H (9.0-12.0) sec INR 3.5 H (<1.2) APTT 31.9 H (22.0-30.0) sec Potassium (3.5-5.5) mmol/L Carbon Dioxide (22-30) mmol/L Glucose (74-99) mg/dL POC Glucose (mg/dL) 146 H (75-99) mg/dL Plasma Lactic Acid Tylor (0.7-2.0) mmol/L Calcium (8.7-10.3) mg/dL U Marijuana (THC) Screen (NotDetected) 10/22/20 10/22/20 10/22/20 Range/Units 16:29 16:29 16:29 WBC (3.8-10.6) k/uL MCV (80.0-100.0) fL Neutrophils # (1.3-7.7) k/uL PT (9.0-12.0) sec INR (<1.2) APTT (22.0-30.0) sec Potassium (3.5-5.5) mmol/L Carbon Dioxide 13 L (22-30) mmol/L Glucose 161 H (74-99) mg/dL POC Glucose (mg/dL) (75-99) mg/dL Plasma Lactic Acid Tylor 14.1 H* (0.7-2.0) mmol/L Calcium (8.7-10.3) mg/dL U Marijuana (THC) Screen Detected H (NotDetected) 10/23/20 10/23/20 10/23/20 Range/Units 06:43 06:43 07:50 WBC 13.5 H (3.8-10.6) k/uL MCV (80.0-100.0) fL Neutrophils # (1.3-7.7) k/uL PT (9.0-12.0) sec INR (<1.2) APTT (22.0-30.0) sec Potassium 3.1 L (3.5-5.5) mmol/L Carbon Dioxide (22-30) mmol/L Glucose (74-99) mg/dL POC Glucose (mg/dL) 107 H (75-99) mg/dL Plasma Lactic Acid Tylor (0.7-2.0) mmol/L Calcium 8.4 L (8.7-10.3) mg/dL U Marijuana (THC) Screen (NotDetected) 10/23/20 Range/Units 12:24 WBC (3.8-10.6) k/uL MCV (80.0-100.0) fL Neutrophils # (1.3-7.7) k/uL PT (9.0-12.0) sec INR (<1.2) APTT (22.0-30.0) sec Potassium (3.5-5.5) mmol/L Carbon Dioxide (22-30) mmol/L Glucose (74-99) mg/dL POC Glucose (mg/dL) 114 H (75-99) mg/dL Plasma Lactic Acid Tylor (0.7-2.0) mmol/L Calcium (8.7-10.3) mg/dL U Marijuana (THC) Screen (NotDetected) Assessment and Plan Assessment: New onset seizure -Fall, seizure, aspiration precautions -Neurology consult -Hold off on antiepileptics for now -MRI Brain w/wo, pending Leukocytosis -Likely secondary to acute stressor -No signs of active infection at this time -Monitor for now Lactic acidosis -Monitor to resolution Chronic Conditions: A. fib, COPD, type II DM, hyperlipidemia, hypertension -Continue with home meds DVT prophylaxis -Coumadin The patient is admitted with an anticipated less than 2 midnight stay for evaluation of new onset sz CODE STATUS: Full Code Discussed with: patient Anticipated discharge date: in am Anticipated discharge place: Home
--- NOTE | 2020-10-23 16:21 | MR ---
EXAMINATION TYPE: MR brain wo/w con DATE OF EXAM: 10/23/2020 COMPARISON: None HISTORY: Seizure CONTRAST: Standard multiplanar, multisequence MRI departmental protocol utilizing 11 mL intravenous Gadavist ga dolinium contrast. Diffusion images show no evidence of an acute infarct. Ventricles have fairly normal size. There is n o mass effect nor midline shift. There is no sign of intracranial hemorrhage. There is mild cerebral atrophy. On the T2 and FLAIR images there are numerous foci of increased signal in the periventricula r white matter. These are more concentrated in the parietal region. Total number is approximately 30 and these measure up to 9 mm. The brainstem is intact. Corpus callosum appears intact. Contrast images show no pathologic enhancement. There is normal enhancement of the venous sinuses. IMPRESSION: Numerous periventricular white matter lesions without enhancement. This could relate to demyelinating disease. Chronic small vessel ischemia also possible. No evidence of a cortical infarct.
[2020-10-23] MEDS ORDERED: levETIRAcetam 500 MG TAB PO STA (16:46)
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
[2020-10-23 17:05] LABS: Glucose,Whole Blood 115 mg/dL (75-99)
[2020-10-23 20:36] LABS: Glucose,Whole Blood 122 mg/dL (75-99)
[2020-10-23] MEDS ORDERED: ATORVASTATIN 10 MG TAB PO SCH (21:00)
[2020-10-23] MEDS ORDERED: DOXAZOSIN 2 MG TAB PO SCH (21:00)
[2020-10-23] MEDS: SODIUM CHLORIDE 0.9% 1,000 ML IV SCH (21:01)
[2020-10-23] MEDS: levETIRAcetam 500 MG TAB PO SCH (21:46)
[2020-10-23] MEDS: ACETAMINOPHEN TAB 325 MG TAB PO PRN (21:47)
[2020-10-24 05:26] VITALS: RESP 18
[2020-10-24 07:09] LABS: Glucose,Whole Blood 109 mg/dL (75-99)
[2020-10-24] MEDS: INSULIN ASPART (NovoLOG) 100 UNIT/ML VIAL SQ SCH (07:19)
[2020-10-24] MEDS: lisinopriL 20 MG TAB PO SCH (07:57)
[2020-10-24] MEDS: BUMETANIDE 1 MG TAB PO SCH (07:57)
[2020-10-24] MEDS: amLODIPine 10 MG TAB PO SCH (07:57)
[2020-10-24] MEDS: levETIRAcetam 500 MG TAB PO SCH (07:57)
[2020-10-24] MEDS: ISOSORBIDE MONONITRATE ER 30 MG TAB.ER.24H PO SCH (07:57)
[2020-10-24] MEDS: carvediloL 12.5 MG TAB PO SCH (07:57)
[2020-10-24] MEDS: ACETAMINOPHEN TAB 325 MG TAB PO PRN (08:01)
[2020-10-24 11:42] LABS: Glucose,Whole Blood 109 mg/dL (75-99)
[2020-10-24 11:46] VITALS: BP 138/79; PULSE 57; TEMP 98.3
--- NOTE | 2020-10-24 14:01 | P.DS ---
Providers Date of admission: 10/22/20 18:54 Expected date of discharge: 10/24/20 Attending physician: Kunal Coley MD Consults: 10/22/20 18:57 Consult Physician Routine Consulting Provider: Gilberto Harper Consult Reason/Comments: new onset seizure Do you want consulting provider notified?: Yes Primary care physician: Herson Holden MD Hospital Course: New onset seizure Patient was admitted for new onset seizure. Seen by neurology. EEG demonstrated epileptic focus. Pt started on keppra. MRI of the Brain was negative for stroke, but showed chronic microvascular disease. Pt was discharged home with new medication for keppra and instructions to f/u with PCP, Neurology. Also advised not to drive or operate heavy machinery until 6 months seizure free. Chronic Conditions: A. fib, COPD, type II DM, hyperlipidemia, hypertension -Continued with home meds, no changes on discharge. Assessment: nGen: awake, alert HEENT: normocephalic, atraumatic, good hearing acuity, moist mucous membranes Resp: good air exchange, breathing comfortably with no accessory muscle use, CTAB CVS: good distal perfusion x 4, RRR, no murmus GI: soft, NTTP, ND : no SPT, no CVAT, nick catheter not] present MSK: no pitting edema, no clubbing Neuro: non-focal, moving all extremities Psych: cooperative, euthymic mood Patient Condition at Discharge: Good Plan - Discharge Summary Discharge Rx Participant: Yes New Discharge Prescriptions: New levETIRAcetam [Keppra] 500 mg PO Q12HR #60 tab levETIRAcetam [Keppra] 500 mg PO ONCE #1 tab Continue amLODIPine BESYLATE [Norvasc] 10 mg PO DAILY Lovastatin [Mevacor] 20 mg PO HS Bumetanide [BUMEX] 1 mg PO BID@0700,1500 Potassium Chloride [Klor-Con 20] 20 meq PO BID@0700,1700 Isosorbide Mononitrate [Isosorbide Mononitrate ER] 30 mg PO DAILY Doxazosin Mesylate 2 mg PO HS glipiZIDE [Glucotrol] 5 mg PO DAILY Warfarin Sodium 4 mg PO AC-SUPPER lisinopriL 20 mg PO DAILY #30 tab Carvedilol [Coreg] 12.5 mg PO BID Discharge Medication List Bumetanide [BUMEX] 1 mg PO BID@0700,1500 08/23/15 [History] Doxazosin Mesylate 2 mg PO HS 08/23/15 [History] Isosorbide Mononitrate [Isosorbide Mononitrate ER] 30 mg PO DAILY 08/23/15 [History] Lovastatin [Mevacor] 20 mg PO HS 08/23/15 [History] Potassium Chloride [Klor-Con 20] 20 meq PO BID@0700,1700 08/23/15 [History] amLODIPine BESYLATE [Norvasc] 10 mg PO DAILY 08/23/15 [History] Warfarin Sodium 4 mg PO AC-SUPPER 04/22/20 [History] glipiZIDE [Glucotrol] 5 mg PO DAILY 04/22/20 [History] lisinopriL 20 mg PO DAILY #30 tab 04/25/20 [Rx] Carvedilol [Coreg] 12.5 mg PO BID 10/22/20 [History] levETIRAcetam [Keppra] 500 mg PO ONCE #1 tab 10/24/20 [Rx] levETIRAcetam [Keppra] 500 mg PO Q12HR #60 tab 10/24/20 [Rx] Follow up Appointment(s)/Referral(s): Herson Holden MD [Primary Care Provider] - 1-2 days Patient Instructions/Handouts: Seizure/Epilepsy Discharge Instructions & Follow-Up, Epilepsy (ED) Activity/Diet/Wound Care/Special Instructions: Pt will need a Neurology appointment in 2 to 4 weeks Discharge Disposition: HOME SELF-CARE
--- NOTE | 2020-10-25 08:32 | EEG ---
ELECTROENCEPHALOGRAM REPORT DATE OF SERVICE: 10/23/2020 PREAMBLE: This is a 65-year-old male with new onset seizure. EEG FINDINGS: This is a 21 channel routine EEG recording patient utilizing 10/20 international system with referential and bipolar montages. Background consists of well developed, well regulated, moderate voltage activity in 9-10 hertz alpha. Background is posterior dominant and reactive to eye opening and closing. Frequent and ( ) and epileptiform activity is seen over the left anterior temporal region. No electrographic seizure was recorded. Photic driving response was seen with some flash frequencies. Some drowsiness and stage 2 sleep was seen with presence of sleep spindles and vertex waves. The EKG channel showed some PVCs. IMPRESSION: This is an abnormal EEG due to the frequent focal slowing as well as epileptiform activity over the left temporal region. This is suggestive of focal cortical neural dysfunction with underlying cortical irritability and tendency for focal onset seizure. This EEG is suggestive of interictal expression of localization-related epilepsy. MMODL / IJN: [id number] / ANAHI
== END 2020-10-24 12:20 | disposition home or self-care (01) | DRG 101 ==
LOC: EC 16:20 → 5NMEDONC 18:54 → OBSVTOIN 18:54 → 5NMEDONC 20:16
PROVIDERS: ADMIT Internal Medicine; ATTEND Internal Medicine
DX: G40.009 Localization-related (focal) (partial) idiopathic epilepsy and epileptic syndromes with seizures of localized onset, not intractable, without status epilepticus (principal); E87.2 Acidosis; E78.5 Hyperlipidemia, unspecified; I44.4 Left anterior fascicular block; I48.0 Paroxysmal atrial fibrillation; I50.9 Heart failure, unspecified; I11.0 Hypertensive heart disease with heart failure; M54.9 Dorsalgia, unspecified; G89.29 Other chronic pain; D72.829 Elevated white blood cell count, unspecified; J44.9 Chronic obstructive pulmonary disease, unspecified; Z79.01 Long term (current) use of anticoagulants; Z79.84 Long term (current) use of oral hypoglycemic drugs; Z79.899 Other long term (current) drug therapy; Z88.0 Allergy status to penicillin; Z80.7 Family history of other malignant neoplasms of lymphoid, hematopoietic and related tissues; Z82.49 Family history of ischemic heart disease and other diseases of the circulatory system; Z83.3 Family history of diabetes mellitus
CPT/HCPCS: 36415; 70450; 70553; 71045; 80048; 80053; 80143; 80179; 80306; 80320; 83036; 83605; 83735; 83930; 85025; 85027; 85610; 85730; 93005; 95819; 96361; 96374; 99285

== ENCOUNTER 2021-05-18 18:14 | Emergency (ER) | payer MEDICARE ==
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
[2021-05-18 18:45] VITALS: RESP 16
[2021-05-18 18:49] LABS: Basophils # (A) 0.1 k/uL (0-0.2); Basophils % (A) 0 %; Eosinophils % (A) 0 %; HCT 49.4 % (39.0-53.0); HGB 16.2 gm/dL (13.0-17.5); Lymphocytes # (A) 0.6 k/uL (1.0-4.8); Lymphocytes % (A) 4 %; MCH 33.7 pg (25.0-35.0); MCHC 32.8 g/dL (31.0-37.0); MCV 102.9 fL (80.0-100.0); Macrocytosis Slight; Mean Platelet Volume 7.2; Monocytes # (A) 0.3 k/uL (0-1.0); Monocytes % (A) 3 %; Neutrophils # (A) 11.6 k/uL (1.3-7.7); Neutrophils % (A) 92 %; Platelet Count 269 k/uL (150-450); WBC 12.7 k/uL (3.8-10.6)
[2021-05-18 19:07] LABS: INR 1.7 (<1.2); Partial Thromboplastin Time 28.1 sec (22.0-30.0); Prothrombin Time 16.9 sec (9.0-12.0)
[2021-05-18 19:11] LABS: ALT 22 U/L (4-49); AST 29 U/L (17-59); Acetaminophen <10.0 ug/mL; African American GFR (CKD) 85 (>60 ml/min/1.73 sqM); Albumin 4.1 g/dL (3.5-5.0); Alcohol <10 mg/dL; Alkaline Phosphatase 95 U/L (38-126); Anion Gap 7 mmol/L; Blood Urea Nitrogen 19 mg/dL (9-20); Calcium 9.3 mg/dL (8.4-10.2); Carbon Dioxide 28 mmol/L (22-30); Chloride 102 mmol/L (98-107); Creatine Kinase 118 U/L (55-170); Glucose 152 mg/dL (74-99); Magnesium 2.1 mg/dL (1.6-2.3); Non-African American GFR(CKD) 73 (>60 ml/min/1.73 sqM); Potassium 4.3 mmol/L (3.5-5.1); Sodium 137 mmol/L (137-145); Total Bilirubin 0.9 mg/dL (0.2-1.3); Total Protein 7.1 g/dL (6.3-8.2)
--- NOTE | 2021-05-18 19:42 | CT ---
EXAM: CT brain wo con, CT facial bones wo con CLINICAL HISTORY: Head and facial pain status post fall. COMPARISON: None TECHNIQUE: 1. Contiguous axial noncontrast images of the brain were obtained. Imaging dose reduction techniques were utilized per protocol. 2. Axial CT images of the facial bones were obtained without contrast. Sagittal and coronal reformat s were generated and reviewed. Dose reduction techniques were utilized per protocol. FINDINGS: Head: There is no evidence for intracranial hemorrhage, mass effect, midline shift or acute large vessel te rritory infarct. The white matter is grossly preserved. Ventricular size and configuration is within normal limits for degree of parenchymal volume. The paranasal sinuses are clear. The mastoid air cells are clear. No evidence for calvarial fracture. There is mild right anterior frontal scalp hematoma. CT facial bones: There is no acute fracture or dislocation. Prior post surgical changes of the mandible involving the symphysis. Otherwise pterygoid plates, zygomatic arches, maxilla and mandible are without acute abnor mality. The paranasal sinuses and mastoid air cells are adequately aerated. There is no significant soft tissue abnormality. IMPRESSION: No acute intracranial or facial bones abnormality. Right frontal scalp hematoma.
--- NOTE | 2021-05-18 19:43 | XR ---
RESULT: HISTORY: fall TECHNIQUE: AP view of the pelvis. COMPARISON: None. FINDINGS: There is no acute fracture or dislocation. The visualized joint spaces are preserved. IMPRESSION: No acute osseous abnormality.
--- NOTE | 2021-05-18 19:44 | XR ---
EXAMINATION TYPE: XR chest 1V portable DATE OF EXAM: 05/18/2021 COMPARISON: 10/22/2020 HISTORY: Pain status post fall. TECHNIQUE: Single frontal view of the chest is obtained. FINDINGS: There is no focal air space opacity, pleural effusion, or pneumothorax seen. The cardiac silhouette size is enlarged. The osseous structures are intact. IMPRESSION: No acute process.
--- NOTE | 2021-05-18 19:55 | CT ---
EXAMINATION TYPE: CT angio head neck DATE OF EXAM: 05/18/2021 HISTORY: Status post fall with possible stroke. COMPARISON: None available CT DLP: 750.5 mGycm. Automated Exposure Control for Dose Reduction was Utilized. TECHNIQUE: CTA scan of the head/neck is performed with IV Contrast, patient injected with 65 mL of I sovue 370, axial images are obtained, coronal and sagittal reformatted images are reviewed. 3D recons tructed images are created on an independent workstation and reviewed. FINDINGS: There is scattered moderate atherosclerotic disease. Otherwise normal three-vessel branching of the a amanda. There is no evidence of high-grade stenosis, dissection or aneurysm seen in the bilateral commo n carotid, cervical internal carotid and vertebral arteries. There is no evidence of high-grade stenosis, dissection or aneurysm in the intracranial internal armstrong tid arteries, anterior, middle and posterior cerebral arteries as well as in the imaged vertebral and basilar arteries. The communicating arteries are unremarkable. Limited evaluation of the brain parenchyma and osseous structures demonstrate no acute abnormality. IMPRESSION: No significant abnormality of the CTA head/neck. NASCET criteria was used in interpretation of this exam?
[2021-05-18 20:26] LABS: Appearance,Urine Clear (Clear); Bilirubin,Urine Negative (Negative); Blood,Urine Negative (Negative); Color,Urine Light Yellow; Glucose,Urine (UA) Negative (Negative); Ketones,Urine Negative (Negative); Leukocyte Esterase,Urine Negative (Negative); Nitrite,Urine Negative (Negative); Protein,Urine 2+ (Negative); RBC,Urine <1 /hpf (0-5); Specific Gravity,Urine 1.026 (1.001-1.035); Squamous Epithelial Cell,Urine <1 /hpf (0-4); Urobilinogen,Urine <2.0 mg/dL (<2.0); WBC,Urine 2 /hpf (0-5)
[2021-05-18 22:10] VITALS: BP 161/99; PULSE 76; TEMP 98.1
== END 2021-05-18 22:10 | disposition other institution (70) ==
LOC: SUPCPDRO 18:14 → EC 18:14
DX: G93.40 Encephalopathy, unspecified (principal); S00.91XA Abrasion of unspecified part of head, initial encounter; E11.9 Type 2 diabetes mellitus without complications; I11.0 Hypertensive heart disease with heart failure; I50.9 Heart failure, unspecified; I48.0 Paroxysmal atrial fibrillation; J44.9 Chronic obstructive pulmonary disease, unspecified; E78.5 Hyperlipidemia, unspecified; K21.9 Gastro-esophageal reflux disease without esophagitis; Z79.01 Long term (current) use of anticoagulants; Z79.84 Long term (current) use of oral hypoglycemic drugs; Z79.899 Other long term (current) drug therapy; W19.XXXA Unspecified fall, initial encounter
CPT/HCPCS: 36415; 93005; 80053; 82550; 83605; 83735; 84484; 85025; 85610; 85730; 81001; 80143; 72170; 71045; 70496; 70486; 70450; 70498; 99285; G0480; Q9967; 80320

== ENCOUNTER → 2021-09-07 | Outpatient (CLI) | payer MEDICARE ==
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
--- NOTE | 2021-09-08 10:32 | US ---
EXAMINATION TYPE: US prostate transrectal DATE OF EXAM: 09/07/2021 COMPARISON: NONE CLINICAL HISTORY: N40.1 BPH w/ LUTS R39.12 Poor stream. Patient states he doesn't know why this is be ing done. No urinary symptoms per patient. Patient states he did not get a LORA. This examination was performed using the transrectal probe. EXAM MEASUREMENTS: Gland Size: 5.3 x 3.9 x 2.5 cm Volume: 26.9 Predicted PSA: 3.2 Actual PSA (if available): 0.5 No prominent masses or lesions seen in peripheral zone. Seminal vesicles appear within normal limits. Prostate gland is within normal limits in size with trinity e central calcifications and heterogeneity. No suspicious hypoechoic nodules. IMPRESSION: Unremarkable study. Predicted PSA = volume x 0.12 ng/ml Calculated Volume = 0.5236 x L x W x H
== END | disposition home or self-care (01) ==
LOC: RADUSWWP 07:34
PROVIDERS: ATTEND Surgery
DX: N50.3 Cyst of epididymis (principal)
CPT/HCPCS: 76870; 76872; 84153; 93975

== ENCOUNTER → 2021-10-12 | Outpatient (CLI) | payer MEDICARE ==
--- NOTE | 2021-10-12 12:42 | CA ---
Transthoracic Echo Report Name: Jayson Rivera Age: 66 Gender: M : 1955 Exam Date: 10/12/2021 11:11 Exam Location: [place] [facility] Ht (in): 69 Wt (lb): 230 Ordering Physician: Herson Holden MD Attending/Referring Phys: Loss Prevention Auditor Solange Celaya RDCS Procedure CPT: Indications: I48.91 UNSPECIFIED ATRIAL FIBRILLATION Cardiac Hx: Technical Quality: Good Contrast 1: N/A Total Dose (mL): Contrast 2: Total Dose (mL): MEASUREMENTS (Male / Female) Normal Values 2D ECHO LV Diastolic Diameter PLAX 5.2 cm 4.2 - 5.9 / 3.9 - 5.3 cm LV Systolic Diameter PLAX 4.2 cm IVS Diastolic Thickness 1.3 cm 0.6 - 1.0 / 0.6 - 0.9 cm LVPW Diastolic Thickness 2.1 cm 0.6 - 1.0 / 0.6 - 0.9 cm LV Relative Wall Thickness 0.7 RV Internal Dim ED PLAX 3.5 cm LA Systolic Diameter LX 5.1 cm 3.0 - 4.0 / 2.7 - 3.8 cm LA Volume 120.6 cm??? 18 - 58 / 22 - 52 cm??? M-MODE MV E Point Septal Separation 0.5 cm DOPPLER AV Peak Velocity 262.3 cm/s AV Peak Gradient 27.5 mmHg AV Mean Velocity 187.1 cm/s AV Mean Gradient 15.8 mmHg AV Velocity Time Integral 50.3 cm LVOT Peak Velocity 146.1 cm/s LVOT Peak Gradient 8.5 mmHg FINDINGS Left Ventricle Mildly increased septal wall thickness. Left ventricular ejection fraction is estimated at 55 %. Right Ventricle Normal right ventricular size and function. Right Atrium Normal right atrial size. Left Atrium Moderately increased left atrial diameter. Severely increased left atrial volume. Moderately increased left atrial area. Mitral Valve Structurally normal mitral valve. Trace to mild mitral regurgitation. Aortic Valve Mild aortic stenosis with a peak gradient of 28 mmHg and a mean gradient of 16mmHg. Tricuspid Valve Structurally normal tricuspid valve. Pulmonic Valve Pulmonic valve not well visualized. Pericardium Normal pericardium. Aorta Normal size aortic root and proximal ascending aorta. CONCLUSIONS Mild left ventricular wall thickness Left ventricular ejection fraction 55% Moderately dilated left atrium Mild mitral regurgitation Mild aortic stenosis with a mean gradient 16 mmHg No pericardial effusion Previewed by: Dr. Ethan Padron DO (Electronically Signed) Final Date: 12 October 2021 12:41
== END | disposition home or self-care (01) ==
LOC: RADECHMAIN 11:00
PROVIDERS: ATTEND Family Medicine
DX: I08.0 Rheumatic disorders of both mitral and aortic valves (principal)
CPT/HCPCS: 93306

== ENCOUNTER 2021-12-24 15:32 | Inpatient (IN) | payer MEDICARE ==
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
[2021-12-24 15:56] LABS: Glucose,Whole Blood 120 mg/dL (70-110)
[2021-12-24] MEDS ORDERED: SODIUM CHLORIDE 0.9% 500 ML 500 ML IV ONE ×2 (16:02→16:57)
[2021-12-24] MEDS ORDERED: DIPH,PERTUS(ACELL)TETVAC-LF 0.5 ML VIAL IM ONE (16:05)
[2021-12-24 16:11] LABS: Basophils % (A) 0 %; Eosinophils # (A) 0.1 k/uL (0-0.7); Eosinophils % (A) 0 %; HCT 50.6 % (39.0-53.0); HGB 16.6 gm/dL (13.0-17.5); Lymphocytes # (A) 0.6 k/uL (1.0-4.8); Lymphocytes % (A) 3 %; MCH 31.4 pg (25.0-35.0); MCHC 32.7 g/dL (31.0-37.0); Mean Platelet Volume 7.4; Monocytes # (A) 0.8 k/uL (0-1.0); Monocytes % (A) 4 %; Neutrophils # (A) 16.8 k/uL (1.3-7.7); Neutrophils % (A) 92 %; Platelet Count 223 k/uL (150-450); RBC 5.27 m/uL (4.30-5.90); WBC 18.3 k/uL (3.8-10.6)
[2021-12-24 16:24] LABS: INR 1.1 (<1.2); Partial Thromboplastin Time 23.1 sec (22.0-30.0); Prothrombin Time 11.4 sec (9.0-12.0)
[2021-12-24 16:25] LABS: ALT 28 U/L (4-49); AST 40 U/L (17-59); African American GFR (CKD) 62 (>60 ml/min/1.73 sqM); Albumin 4.2 g/dL (3.5-5.0); Alcohol <10 mg/dL; Alkaline Phosphatase 95 U/L (38-126); Anion Gap 11 mmol/L; Blood Urea Nitrogen 23 mg/dL (9-20); Carbon Dioxide 25 mmol/L (22-30); Chloride 100 mmol/L (98-107); Glucose 127 mg/dL (74-99); Non-African American GFR(CKD) 54 (>60 ml/min/1.73 sqM); Potassium 4.6 mmol/L (3.5-5.1); Sodium 136 mmol/L (137-145); Total Bilirubin 1.4 mg/dL (0.2-1.3); Total Protein 6.7 g/dL (6.3-8.2)
[2021-12-24 16:36] LABS: Appearance,Urine Clear (Clear); Bacteria,Urine Rare /hpf; Bilirubin,Urine Negative (Negative); Blood,Urine Small (Negative); Color,Urine Yellow; Glucose,Urine (UA) 2+ (Negative); Hyaline Casts,Urine 1 /lpf (0-2); Ketones,Urine Negative (Negative); Leukocyte Esterase,Urine Negative (Negative); Mucus,Urine Rare /hpf; Nitrite,Urine Negative (Negative); PH, Urine 6.5 (5.0-8.0); Protein,Urine 3+ (Negative); RBC,Urine 4 /hpf (0-5); Specific Gravity,Urine 1.012 (1.001-1.035); Squamous Epithelial Cell,Urine <1 /hpf (0-4); Urobilinogen,Urine <2.0 mg/dL (<2.0); WBC,Urine 4 /hpf (0-5)
[2021-12-24 16:48] LABS: Amphetamine Screen,Urine Not Detected (NotDetected); Barbiturate Screen,Urine Not Detected (NotDetected); Benzodiazepines Screen,Urine Not Detected (NotDetected); Cocaine Screen,Urine Not Detected (NotDetected); Methadone Screen, Urine Not Detected (NotDetected); Opiate Screen,Urine Not Detected (NotDetected); Oxycodone Screen, Urine Not Detected (NotDetected); Phencyclidine Screen,Urine Not Detected (NotDetected); Tricyclic Antidepressant,Urine Not Detected (NotDetected); Urn Cannabinoid Scrn Detected (NotDetected)
--- NOTE | 2021-12-24 16:52 | XR ---
EXAMINATION TYPE: XR chest 1V portable DATE OF EXAM: 12/24/2021 COMPARISON: 05/18/2021 HISTORY: Altered mental status TECHNIQUE: Single view FINDINGS: Heart is enlarged. No heart failure. Costophrenic angles are clear. There are chest leads. Bony thorax is intact. IMPRESSION: Cardiomegaly. No active cardiopulmonary disease. No change.
[2021-12-24] MEDS ORDERED: MORPHINE SULFATE 4 MG/ML SYRINGE IVP STA (17:40)
--- NOTE | 2021-12-24 17:56 | CT ---
EXAMINATION TYPE: CT brain francisco javier isaac DATE OF EXAM: 12/24/2021 COMPARISON: 05/18/2021 CT brain HISTORY: found on floor. AMS and headache CT DLP: 1674.7 mGycm Automated exposure control for dose reduction was used. There is cerebral cortical atrophy. There is no mass effect or midline shift. No sign of intracranial hemorrhage. The calvarium is intact. There is mild hypodensity in the periventricular white matter. Cervical vertebra have normal alignment. There is disc space narrowing at C5-6 and C6-7 with spurring of the endplates. No compression fracture. There is C7-T1 disc space narrowing and spurring. Facet j oints are intact. No fracture seen. IMPRESSION: Spondylotic changes in the lower cervical spine. No fracture. Cerebral atrophy. No acute intracranial abnormality. Chronic small vessel ischemia. No change compare d to old exam.
[2021-12-24] MEDS ORDERED: ASPIRIN 81 MG PO STA (18:17)
[2021-12-24 20:30] LABS: Glucose,Whole Blood 130 mg/dL (70-110)
[2021-12-24] MEDS ORDERED: HYDROcodone/APAP 5-325MG 1 EACH TAB PO PRN (22:45)
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
[2021-12-25] MEDS: levETIRAcetam 500 MG TAB PO SCH ×3 (04:25→20:31)
[2021-12-25] MEDS: carvediloL 12.5 MG TAB PO SCH ×3 (04:25→18:18)
[2021-12-25] MEDS: RIVAROXABAN 20 MG TAB PO SCH ×2 (04:25→18:18)
[2021-12-25] MEDS: SODIUM CHLORIDE 0.9% 1,000 ML IV SCH ×3 (05:29→20:31)
[2021-12-25 05:49] LABS: Glucose,Whole Blood 101 mg/dL (70-110)
[2021-12-25] MEDS: INSULIN ASPART (NovoLOG) 100 UNIT/ML VIAL SQ SCH ×4 (06:17→20:20)
[2021-12-25 06:21] LABS: Basophils % (A) 0 %; Eosinophils # (A) 0.1 k/uL (0-0.7); Eosinophils % (A) 1 %; HCT 45.9 % (39.0-53.0); HGB 15.1 gm/dL (13.0-17.5); Lymphocytes # (A) 1.4 k/uL (1.0-4.8); Lymphocytes % (A) 11 %; MCH 32.1 pg (25.0-35.0); MCV 97.4 fL (80.0-100.0); Mean Platelet Volume 7.5; Monocytes % (A) 8 %; Neutrophils # (A) 10.2 k/uL (1.3-7.7); Neutrophils % (A) 79 %; Platelet Count 214 k/uL (150-450); RBC 4.71 m/uL (4.30-5.90); RDW 13.1 % (11.5-15.5); WBC 12.9 k/uL (3.8-10.6)
[2021-12-25 06:36] LABS: Albumin 3.3 g/dL (3.5-5.0); Calcium 8.1 mg/dL (8.4-10.2); Potassium 3.3 mmol/L (3.5-5.1); Total Bilirubin 1.8 mg/dL (0.2-1.3); Total Protein 5.6 g/dL (6.3-8.2)
--- NOTE | 2021-12-25 10:02 | CONS ---
CONSULTATION CHIEF COMPLAINT: Syncope. HISTORY OF PRESENT ILLNESS: This is a 66-year-old gentleman with history of hypertension, diabetes, dyslipidemia, and permanent atrial fibrillation, who comes to hospital having had an episode of loss of consciousness at home. The patient was found lying on the floor by his friend. He was confused. The patient was seen by his friend the night before when he was acting normally. He has a history of seizure and takes Keppra for the same. At the time of his initial presentation to the emergency room, the patient was complaining of headache, but seems somewhat confused. He did not have any focal neurological deficits. Did not have chest pain or difficulty in breathing. Did not have any leg edema. His EKG shows atrial fibrillation with controlled ventricular rate, left axis deviation and poor R-wave progression. His troponin is in the faulkner zone at 0.1 and 0.1. The admission creatinine was elevated at 1.36. The patient still appears somewhat confused and unsure of information. His clinical presentation is more consistent with a seizure with postictal state than a syncope. We will obtain a 2D echo. We will monitor him on telemetry and we will consider an outpatient stress test on him to rule out ischemia given the elevated troponin. PAST MEDICAL HISTORY: Significant for hypertension, diabetes, dyslipidemia. MEDICATIONS: Include, 1. Lisinopril 20 daily. 2. Keppra. 3. Coreg 12.5 b.i.d. 4. Norvasc 10 daily. 5. Mevacor 20 daily. 6. Imdur 30 daily. 7. Glucotrol. 8. Bumex. 9. K-Dur. ALLERGIES: Penicillin and naprosyn. FAMILY HISTORY: Negative for premature coronary artery disease. SOCIAL HISTORY: Significant for marijuana use. REVIEW OF SYSTEMS: 14 out of 14 review of systems has been performed, pertinence are as documented. PHYSICAL EXAMINATION: GENERAL: He is comfortable at rest. VITAL SIGNS: Afebrile. Heart rate is 70 beats per minute. Blood pressure is 159/80, respiratory rate is 18, O2 saturation is 94% on room air. NECK: There is no jugular venous distention. Carotid upstroke is normal. There is no bruit. CHEST: Reveals good air entry bilaterally. HEART: Reveals first and second heart sounds. No gallop. No murmur. Irregular. ABDOMEN: Soft. EXTREMITIES: Did not reveal any edema. Peripheral pulses are felt. LABORATORY DATA: Labs show that the hemoglobin is 15.1, platelet count is 214. Creatinine is 1, which is an improvement from his initial presentation. Troponins are mildly elevated at 0.1, but have been flat without any pattern to them. ASSESSMENT AND PLAN: 1. Loss of consciousness, probably related to his seizure with postictal state. 2. Elevated troponin, could be related to renal insufficiency. We certainly have to rule out underlying ischemic heart disease in a patient with multiple coronary risk factors. We will obtain a 2D echo on him tomorrow morning and Neurology should be consulted on discharge. Please arrange follow up with Cardiology and we will consider doing a stress test. MMODL / IJN: [id number] /
[2021-12-25] MEDS: amLODIPine 10 MG TAB PO SCH (10:32)
[2021-12-25] MEDS: ASPIRIN 81 MG PO SCH (10:32)
[2021-12-25] MEDS: ISOSORBIDE MONONITRATE ER 30 MG TAB.ER.24H PO SCH (10:32)
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
[2021-12-25 12:24] LABS: Glucose,Whole Blood 103 mg/dL (70-110)
--- NOTE | 2021-12-25 12:32 | P.PN ---
Subjective Progress Note Date: 12/25/21 The patient was seen at bedside, no acute events overnight. Objective - Vital Signs Vital signs: Vital Signs Temp 97.9 F 12/25/21 04:00 Pulse 70 12/25/21 04:00 Resp 16 12/25/21 04:00 BP 174/84 12/25/21 04:00 Pulse Ox 94 L 12/25/21 04:00 FiO2 Intake & Output 12/24/21 12/25/21 12/25/21 18:59 06:59 18:59 Intake Total 930 118 Output Total 1100 525 Balance -170 -407 Weight 104.326 kg 104.326 kg Intake: Intake, IV Titration 390 Amount Sodium Chloride 0.9% 1, 390 000 ml @ 130 mls/hr IV . [id number] [facility] Rx#:[id number] Oral 540 118 Output: Urine 1100 525 Other: Voiding Method Bedside Commode Urinal # Voids 1 - Exam General: [non toxic], [no distress], [appears at stated age] Derm: [warm], [dry] Head: [atraumatic], [normocephalic], [symmetric] Eyes: [EOMI], [no lid lag], [anicteric sclera] Mouth: [no lip lesion], [mucus membranes moist] Cardiovascular: [S1S2 reg], [no murmur], [positive posterior tibial pulse bilateral], Lungs: [CTA bilateral], [no rhonchi, no rales] , [no accessory muscle use] Abdominal: [soft], [ nontender to palpation], [no guarding], [no appreciable organomegaly] Ext: [no gross muscle atrophy], [no edema], [no contractures] Neuro: [ CN II-XI grossly intact], [no focal neuro deficits] Psych: [Alert], [alert], [appropriate affect] - Labs CBC & Chem 7: 12/25/21 05:46 12/25/21 05:46 Labs: Abnormal Lab Results - Last 24 Hours (Table) 12/24/21 12/24/21 12/24/21 Range/Units 15:50 15:50 15:50 WBC 18.3 H (3.8-10.6) k/uL Neutrophils # 16.8 H (1.3-7.7) k/uL Lymphocytes # 0.6 L (1.0-4.8) k/uL Sodium 136 L (137-145) mmol/L Potassium (3.5-5.1) mmol/L BUN 23 H (9-20) mg/dL Creatinine 1.36 H (0.66-1.25) mg/dL Glucose 127 H (74-99) mg/dL POC Glucose (mg/dL) (70-110) mg/dL Calcium (8.4-10.2) mg/dL Total Bilirubin 1.4 H (0.2-1.3) mg/dL Creatine Kinase (55-170) U/L Troponin I 0.116 H* (0.000-0.034) ng/mL Total Protein (6.3-8.2) g/dL Albumin (3.5-5.0) g/dL Urine Protein (Negative) Urine Glucose (UA) (Negative) Urine Blood (Negative) Urine Bacteria (None) /hpf Urine Mucus (None) /hpf U Marijuana (THC) Screen (NotDetected) 12/24/21 12/24/21 12/24/21 Range/Units 15:53 20:28 20:53 WBC (3.8-10.6) k/uL Neutrophils # (1.3-7.7) k/uL Lymphocytes # (1.0-4.8) k/uL Sodium (137-145) mmol/L Potassium (3.5-5.1) mmol/L BUN (9-20) mg/dL Creatinine (0.66-1.25) mg/dL Glucose (74-99) mg/dL POC Glucose (mg/dL) 120 H 130 H (70-110) mg/dL Calcium (8.4-10.2) mg/dL Total Bilirubin (0.2-1.3) mg/dL Creatine Kinase 292 H (55-170) U/L Troponin I (0.000-0.034) ng/mL Total Protein (6.3-8.2) g/dL Albumin (3.5-5.0) g/dL Urine Protein (Negative) Urine Glucose (UA) (Negative) Urine Blood (Negative) Urine Bacteria (None) /hpf Urine Mucus (None) /hpf U Marijuana (THC) Screen (NotDetected) 12/24/21 12/24/21 12/25/21 Range/Units 20:53 Unknown 00:09 WBC (3.8-10.6) k/uL Neutrophils # (1.3-7.7) k/uL Lymphocytes # (1.0-4.8) k/uL Sodium (137-145) mmol/L Potassium (3.5-5.1) mmol/L BUN (9-20) mg/dL Creatinine (0.66-1.25) mg/dL Glucose (74-99) mg/dL POC Glucose (mg/dL) (70-110) mg/dL Calcium (8.4-10.2) mg/dL Total Bilirubin (0.2-1.3) mg/dL Creatine Kinase (55-170) U/L Troponin I 0.153 H* 0.154 H* (0.000-0.034) ng/mL Total Protein (6.3-8.2) g/dL Albumin (3.5-5.0) g/dL Urine Protein 3+ H (Negative) Urine Glucose (UA) 2+ H (Negative) Urine Blood Small H (Negative) Urine Bacteria Rare H (None) /hpf Urine Mucus Rare H (None) /hpf U Marijuana (THC) Screen Detected H (NotDetected) 12/25/21 12/25/21 Range/Units 05:46 05:46 WBC 12.9 H (3.8-10.6) k/uL Neutrophils # 10.2 H (1.3-7.7) k/uL Lymphocytes # (1.0-4.8) k/uL Sodium 135 L (137-145) mmol/L Potassium 3.3 L (3.5-5.1) mmol/L BUN (9-20) mg/dL Creatinine (0.66-1.25) mg/dL Glucose 102 H (74-99) mg/dL POC Glucose (mg/dL) (70-110) mg/dL Calcium 8.1 L (8.4-10.2) mg/dL Total Bilirubin 1.8 H (0.2-1.3) mg/dL Creatine Kinase (55-170) U/L Troponin I (0.000-0.034) ng/mL Total Protein 5.6 L (6.3-8.2) g/dL Albumin 3.3 L (3.5-5.0) g/dL Urine Protein (Negative) Urine Glucose (UA) (Negative) Urine Blood (Negative) Urine Bacteria (None) /hpf Urine Mucus (None) /hpf U Marijuana (THC) Screen (NotDetected) Assessment and Plan Assessment: Acute metabolic encephalopathy , suspected to be post ictal with a breakthrough seizure seizure precautions CT brain no acute pathology neuro consult recommended going up on Keppra dose from 500 twice a day to 1000 twice a day neuro checks fall precautions RUPERTO avoid nephrotoxic meds monitor renal fucntion hold lisinopril Elevated trops denies chest pain or SOB trend trops cardiology consult Ordered two-dimensional echo and pending ASA, statin imdur Hypertension coreg and amlodipine controlled Afib on xarelto social psychologist consult , for resources to assist with copay DVT PPX on xarelto for afib full code
[2021-12-25 16:51] LABS: Glucose,Whole Blood 111 mg/dL (70-110)
[2021-12-25 19:37] LABS: Glucose,Whole Blood 92 mg/dL (70-110)
[2021-12-25] MEDS: ATORVASTATIN 10 MG TAB PO SCH (20:31)
[2021-12-26] MEDS: SODIUM CHLORIDE 0.9% 1,000 ML IV SCH ×2 (06:03→18:48)
[2021-12-26] MEDS: INSULIN ASPART (NovoLOG) 100 UNIT/ML VIAL SQ SCH ×4 (06:10→20:42)
[2021-12-26 06:11] LABS: Glucose,Whole Blood 101 mg/dL (70-110)
[2021-12-26] MEDS: carvediloL 12.5 MG TAB PO SCH (06:12)
[2021-12-26 06:58] LABS: Basophils % (A) 0 %; Eosinophils # (A) 0.1 k/uL (0-0.7); Eosinophils % (A) 1 %; HCT 44.4 % (39.0-53.0); HGB 14.9 gm/dL (13.0-17.5); Lymphocytes # (A) 1.4 k/uL (1.0-4.8); Lymphocytes % (A) 15 %; MCH 32.7 pg (25.0-35.0); MCHC 33.5 g/dL (31.0-37.0); MCV 97.5 fL (80.0-100.0); Mean Platelet Volume 7.5; Monocytes # (A) 0.7 k/uL (0-1.0); Monocytes % (A) 7 %; Neutrophils % (A) 75 %; Platelet Count 201 k/uL (150-450); RBC 4.55 m/uL (4.30-5.90); RDW 12.8 % (11.5-15.5); WBC 9.3 k/uL (3.8-10.6)
[2021-12-26 07:22] LABS: African American GFR (CKD) >90 (>60 ml/min/1.73 sqM); Anion Gap 6 mmol/L; Blood Urea Nitrogen 15 mg/dL (9-20); Calcium 7.9 mg/dL (8.4-10.2); Carbon Dioxide 28 mmol/L (22-30); Chloride 101 mmol/L (98-107); Glucose 99 mg/dL (74-99); Magnesium 1.7 mg/dL (1.6-2.3); Non-African American GFR(CKD) 80 (>60 ml/min/1.73 sqM); Phosphorus 2.6 mg/dL (2.5-4.5); Potassium 3.3 mmol/L (3.5-5.1); Sodium 135 mmol/L (137-145)
[2021-12-26] MEDS ORDERED: POTASSIUM CHLORIDE ER 20 MEQ TAB.ER PO STA (08:31)
[2021-12-26] MEDS: MAGNESIUM SULFATE-D5W PMX 1 GM in DEXTROSE/WATER 1 100ML.BAG IVPB SCH ×2 (09:30→12:18)
[2021-12-26] MEDS: ISOSORBIDE MONONITRATE ER 30 MG TAB.ER.24H PO SCH (09:31)
[2021-12-26] MEDS: ASPIRIN 81 MG PO SCH (09:31)
[2021-12-26] MEDS: amLODIPine 10 MG TAB PO SCH (09:31)
[2021-12-26] MEDS: levETIRAcetam 500 MG TAB PO SCH ×2 (09:31→20:42)
--- NOTE | 2021-12-26 10:04 | P.PN ---
Subjective Progress Note Date: 12/26/21 Hospital course: Patient is a very pleasant 66-year-old male with a past medical history of hypertension, hyperlipidemia, atrial fibrillation on anticoagulation with Xarelto, seizure disorder on Vimpat and COPD. patient presented to the emergency department on 12/24/21 after being found lying on the ground next to his bed confused with no recollection as to how he ended up there. Patient underwent full evaluation in the emergency department. CT head and cervical spine revealed no acute abnormalities showing only spondylitic changes of the cervical spine and mild cerebral atrophy and chronic small vessel ischemia of the brain. EKG revealed atrial fibrillation with a controlled ventricular rate of 71 bpm, unchanged when compared to previous EKG completed on 05/18/21. Labs revealed leukocytosis with WBC count of 18.3, and elevated renal function with BUN of 23, creatinine 1.36, and GFR 54. Bilirubin also elevated at 1.4 and creatinine kinase of 292. Troponin elevated at 0.153. Patient was admitted under our services with consultation to neurology and cardiology. Physical exam: Patient seen and fully evaluated at bedside this morning. Patient found to be in A. fib with a very slow ventricular response with heart rate in 30s. Order placed for EKG. Patient currently denies having any headache, lightheadedness, dizziness, chest pain, palpitations, shortness of breath, numbness/tingling/weakness in his extremities or any other complaints at this time. Vital signs reviewed and stable. General: Nontoxic, no distress and appears stated age. Derm: Skin warm and dry, normal coloration for ethnicity. Head: Atraumatic, normocephalic and symmetric. Eyes: EOMs intact, no lid lag, and anicteric sclera Mouth: no lip lesions, mucus membranes moist Cardiovascular: Slow irregular rate and rhythm, S1S2, no murmur, positive posterior tibial pulses bilaterally, and cap refill < 2 seconds. Lungs: Respirations even, regular, and unlabored on room air. Lungs CTA bilaterally, no rhonchi, no rales, no wheezing, and no accessory muscle usage. Abdominal: soft, nontender to palpation, no guarding, no appreciable organomegaly Ext: ROM intact. No gross muscle atrophy, no edema, no contractures Neuro: Speech clear, face symmetrical and CN II-XII grossly intact with no noted focal neuro deficits Psych: Alert and oriented to person, place, time, and situation. Appropriate and pleasant affect. Assessment and Plan of Care: Metabolic encephalopathy, suspected to be resulting from breakthrough seizure followed by a postictal period -Seizure precautions, aspiration precautions, and fall precautions in place. -Patient informed of [place] state law stating no driving until seizure free for 6 months. Patient also instructed to avoid climbing ladders, operating dangerous or heavy machinery or unsupervised swimming until seizure free for 6 months[address] -CT head negative for acute process. -Neurology following, appreciate further recommendations. -Continue Keppra 1000 mg every 12 hours and Vimpat Elevated troponins -Troponins elevated at 0.116, 0.153, 0.154, and 0.101. -Cardiology consulted, appreciate further recommendations -Telemetry monitoring -Cardiac diet, NPO at midnight -Xarelto and atorvastatin. Carvedilol discontinued secondary to bradycardic rate. -Echocardiogram revealing a preserved EF of 55-60% with mild mitral and tricuspid regurgitation. Acute kidney injury, resolved Chronic atrial fibrillation Atrial fibrillation with a slowed ventricular response with heart rate in 30s -Carvedilol discontinued -Continue anticoagulation with Xarelto. Hypertension -Monitor vital signs and continue daily medication regimen with amlodipine and isosorbide mononitrate. Now that RUPERTO has resolved patient may resume losartan. Hyperlipidemia -Continue daily medication regimen with atorvastatin. CODE STATUS: Full code DVT prophylaxis: Xarelto, Discussed with: Patient and RN Anticipated discharge date: Likely within the next 24-48 hours pending improvement in bradycardic rate after discontinuation of carvedilol Anticipated discharge place: Home A total of 35 minutes was spent on the care of this complex patient more than 50% of the time was spent in counseling and care coordination. I reviewed the documentation as provided by the CIPRIANO above, who is the original author of this note. I agree with the documented assessment and plan, with the following changes: none Objective - Vital Signs Vital signs: Vital Signs Temp 98.2 F 12/26/21 03:38 Pulse 95 12/26/21 03:38 Resp 16 12/26/21 03:38 BP 179/88 12/26/21 03:38 Pulse Ox 95 12/26/21 03:38 FiO2 Intake & Output 12/25/21 12/26/21 12/26/21 18:59 06:59 18:59 Intake Total 1078 1080 Output Total 925 625 Balance 153 455 Intake: Oral 1078 1080 Output: Urine 925 625 Other: Voiding Method Bedside Commode Toilet Urinal Bedside Commode Urinal # Voids 1 - Labs CBC & Chem 7: 12/26/21 06:39 12/26/21 06:39 Labs: Abnormal Lab Results - Last 24 Hours (Table) 12/25/21 12/25/21 12/26/21 Range/Units 12:42 16:33 06:39 Sodium 135 L (137-145) mmol/L Potassium 3.3 L (3.5-5.1) mmol/L POC Glucose (mg/dL) 111 H (70-110) mg/dL Calcium 7.9 L (8.4-10.2) mg/dL Troponin I 0.101 H* (0.000-0.034) ng/mL
--- NOTE | 2021-12-26 10:50 | CA ---
Transthoracic Echo Report Name: Jayson Rivera Age: 66 Gender: M : 1955 Exam Date: 12/26/2021 09:05 Exam Location: [facility] Ht (in): 67 Wt (lb): 230 Ordering Physician: Erik Carrington MD ([id number]) Attending/Referring Phys: Charissa REYES Program Coordinator [facility] Dawn Bustillo RDCS Procedure CPT: Indications: elevated troponins, syncopal episode Cardiac Hx: Technical Quality: Fair Contrast 1: Total Dose (mL): Contrast 2: Total Dose (mL): MEASUREMENTS (Male / Female) Normal Values 2D ECHO LV Diastolic Diameter PLAX 5.4 cm 4.2 - 5.9 / 3.9 - 5.3 cm LV Systolic Diameter PLAX 3.5 cm IVS Diastolic Thickness 1.5 cm 0.6 - 1.0 / 0.6 - 0.9 cm LVPW Diastolic Thickness 1.6 cm 0.6 - 1.0 / 0.6 - 0.9 cm LV Relative Wall Thickness 0.6 RV Internal Dim ED PLAX 3.4 cm LA Systolic Diameter LX 5.0 cm 3.0 - 4.0 / 2.7 - 3.8 cm LA Volume 75.6 cm??? 18 - 58 / 22 - 52 cm??? M-MODE Aortic Root Diameter MM 3.6 cm MV E Point Septal Separation 0.1 cm AV Cusp Separation MM 2.1 cm DOPPLER AV Peak Velocity 238.7 cm/s AV Peak Gradient 22.8 mmHg AV Mean Velocity 148.1 cm/s AV Mean Gradient 10.7 mmHg AV Velocity Time Integral 44.7 cm LVOT Peak Velocity 107.3 cm/s LVOT Peak Gradient 4.6 mmHg MV Area PHT 3.8 cm??? MV Deceleration Time 229.8 ms FINDINGS Left Ventricle Left ventricular ejection fraction is estimated at 55-60%. Left ventricular cavity size normal. Moderate concentric left ventricular hypertrophy. Right Ventricle Mild right ventricular dilatation. Unable to estimate the right ventricular systolic pressure. Right Atrium Normal right atrial size. Left Atrium Moderately increased left atrial diameter. Moderately increased left atrial volume. Mildly increased left atrial area. No evidence for an atrial septal defect. Mitral Valve Mitral valve thickened. Mild mitral regurgitation. Aortic Valve Trileaflet aortic valve. No aortic valve stenosis or regurgitation. Tricuspid Valve Structurally normal tricuspid valve.trace to mild tricuspid regurgitation. Pulmonic Valve Pulmonic valve not well visualized. Pericardium Normal pericardium. No pericardial effusion. Aorta Normal size aortic root and proximal ascending aorta. CONCLUSIONS 1. Normal size and systolic function 2. Mild mitral regurgitation 3. Trace to mild tricuspid regurgitation Previewed by: Dr. Hoam Flood MD (Electronically Signed) Final Date: 26 December 2021 10:49
[2021-12-26 12:00] LABS: Glucose,Whole Blood 96 mg/dL (70-110)
--- NOTE | 2021-12-26 15:15 | PN ---
PROGRESS NOTE SUBJECTIVE: A 66-year-old gentleman who has been admitted yesterday with a postictal situation. He has bradycardia today, heart rate is about 42, atrial fib. He is already anticoagulated. He has received 12.5 mg of carvedilol today, heart rate is low. He may have underlying sick sinus syndrome and also in the postictal state some bradycardia is also known to be possible. I am therefore recommending no Coreg, discontinue aspirin. Check a TSH, perform EKG tomorrow and continue his other medications. Prognosis remains guarded. OBJECTIVE: VITALS: Stable. HEART: S1, S2 with irregular rhythm, short systolic murmur noted. LUNGS: Reveal diminished air entry. ABDOMEN: Exam is unchanged. LOWER EXTREMITIES: Exam is unchanged. MMODL / IJN: [id number] /
[2021-12-26 16:54] LABS: Glucose,Whole Blood 100 mg/dL (70-110)
[2021-12-26] MEDS: RIVAROXABAN 20 MG TAB PO SCH (17:08)
[2021-12-26 19:42] LABS: Glucose,Whole Blood 123 mg/dL (70-110)
[2021-12-26] MEDS: ATORVASTATIN 10 MG TAB PO SCH (20:42)
[2021-12-26] MEDS ORDERED: LACOSAMIDE 50 MG TABLET PO SCH (21:00)
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
[2021-12-27 05:49] LABS: Glucose,Whole Blood 87 mg/dL (70-110)
[2021-12-27] MEDS: INSULIN ASPART (NovoLOG) 100 UNIT/ML VIAL SQ SCH ×2 (07:28→12:06)
[2021-12-27] MEDS ORDERED: LOSARTAN 50 MG TAB PO SCH ×2 (09:00)
[2021-12-27] MEDS ORDERED: LACOSAMIDE 150 MG TABLET PO SCH (09:00)
[2021-12-27] MEDS: amLODIPine 10 MG TAB PO SCH (09:40)
[2021-12-27] MEDS: ISOSORBIDE MONONITRATE ER 30 MG TAB.ER.24H PO SCH (09:40)
--- NOTE | 2021-12-27 09:44 | P.DS ---
Providers Date of admission: 12/24/21 18:28 Expected date of discharge: 12/27/21 Attending physician: Prasanth Escamilla MD Consults: 12/24/21 18:26 Consult Physician Urgent Consulting Provider: Gilberto Harper Consult Reason/Comments: Altered mental status, history of seizure disorder Do you want consulting provider notified?: Yes 12/25/21 02:10 Consult Physician Routine Consulting Provider: Robert Hough Consult Reason/Comments: elevated trops Do you want consulting provider notified?: Yes, Notify in am Primary care physician: Proctor Hospital Course: Discharge Diagnosis: Metabolic encephalopathy, resolved suspected to be resulting from breakthrough seizure followed by a postictal period. CT head was negative for acute process. Patient was evaluated by neurology and Vimpat increased to 150 mg twice daily. Patient informed of [place] state law stating no driving until seizure free for 6 months. Patient also instructed to avoid climbing ladders, operating dangerous or heavy machinery or unsupervised swimming until seizure free for 6 months. Elevated troponins. Patient was asymptomatic denying any chest pain, palpitations, shortness of breath, or exertional dyspnea. Acute coronary event ruled out. Cardiology discontinued carvedilol and increased patient's losartan. Recommending outpatient follow-up in their office in 1 week. Acute kidney injury, resolved Chronic atrial fibrillation Atrial fibrillation with a slowed ventricular response with heart rate in 30s, carvedilol was discontinued and heart rate increasing and maintaining in 50s. Hypertension. Monitor vital signs and continue daily medication regimen with amlodipine, losartan and isosorbide mononitrate. Hyperlipidemia. Continue daily medication regimen with Lovastatin. Hospital Course: Patient is a very pleasant 66-year-old male with a past medical history of hypertension, hyperlipidemia, atrial fibrillation on anticoagulation with Xarelto, seizure disorder on Vimpat and COPD. patient presented to the emergency department on 12/24/21 after being found lying on the ground next to his bed confused with no recollection as to how he ended up there. Patient underwent full evaluation in the emergency department. CT head and cervical spine revealed no acute abnormalities showing only spondylitic changes of the cervical spine and mild cerebral atrophy and chronic small vessel ischemia of the brain. EKG revealed atrial fibrillation with a controlled ventricular rate of 71 bpm, u nchanged when compared to previous EKG completed on 05/18/21. Labs revealed leukocytosis with WBC count of 18.3, and elevated renal function with BUN of 23, creatinine 1.36, and GFR 54. Bilirubin also elevated at 1.4 and creatinine kinase of 292. Troponin elevated at 0.153. Patient was admitted under our services with consultation to neurology and cardiology.Troponins trended and remained elevated at 0.116, 0.153, 0.154, and 0.101. Echocardiogram revealing a preserved EF of 55-60% with mild mitral and tricuspid regurgitation. Patient was evaluated by cardiology. Patient was found to have atrial fibrillation with a slowed ventricular response with heart rate maintaining in 30s. Carvedilol was discontinued resulting in improvement of heart rate with ventricular rate maintaining in 50s. Losartan was increased secondary to patient's persistent hypertension. Patient denies having any complaints or concerns at this time including headache, lightheadedness, dizziness, chest pain, palpitations, shortness of breath, exertional dyspnea, or experiencing any numbness/tingling/weakness/swelling in his extremities. Medically patient is stable for discharge at this time and to follow up outpatient with PCP in 1-2 days and with cardiology in 1 week. Physical exam: Vital signs reviewed and stable. General: Nontoxic, no distress and appears stated age. Derm: Skin warm and dry, normal coloration for ethnicity. Head: Atraumatic, normocephalic and symmetric. Eyes: EOMs intact, no lid lag, and anicteric sclera Mouth: no lip lesions, mucus membranes moist Cardiovascular: Slow irregular rate and rhythm, S1S2, no murmur, positive posterior tibial pulses bilaterally, and cap refill < 2 seconds. Lungs: Respirations even, regular, and unlabored on room air. Lungs CTA bilaterally, no rhonchi, no rales, no wheezing, and no accessory muscle usage. Abdominal: soft, nontender to palpation, no guarding, no appreciable organomegaly Ext: ROM intact. No gross muscle atrophy, no edema, no contractures Neuro: Speech clear, face symmetrical and CN II-XII grossly intact with no noted focal neuro deficits Psych: Alert and oriented to person, place, time, and situation. Appropriate and pleasant affect. A total of 35 minutes of time were spent preparing this complex discharge summary. Pt was discharged on 12/27/21 at 9:28 AM. Trent Reich NP rendered care for this patient independently, reviewed the findings and plan as documented in the note above. I did not physically speak with or examine the patient on this date. Patient Condition at Discharge: Stable Plan - Discharge Summary Discharge Rx Participant: No New Discharge Prescriptions: New Lacosamide [Vimpat] 150 mg PO BID 30 Days #60 tab Losartan [Cozaar] 100 mg PO DAILY 60 Days #120 tab Continue amLODIPine BESYLATE [Norvasc] 10 mg PO HS Lovastatin [Mevacor] 20 mg PO HS Bumetanide [BUMEX] 1 mg PO DAILY Isosorbide Mononitrate [Isosorbide Mononitrate ER] 30 mg PO DAILY Doxazosin Mesylate 2 mg PO HS glipiZIDE [Glucotrol] 5 mg PO DAILY Rivaroxaban [Xarelto] 20 mg PO W/SUPPER Discontinued Potassium Chloride [Klor-Con 20] 20 meq PO BID@0700,1700 carvediloL [Coreg] 6.25 mg PO BID Lacosamide [Vimpat] 100 mg PO BID Losartan Potassium 50 mg PO DAILY Discharge Medication List Bumetanide [BUMEX] 1 mg PO DAILY 08/23/15 [History] Doxazosin Mesylate 2 mg PO HS 08/23/15 [History] Isosorbide Mononitrate [Isosorbide Mononitrate ER] 30 mg PO DAILY 08/23/15 [History] Lovastatin [Mevacor] 20 mg PO HS 08/23/15 [History] amLODIPine BESYLATE [Norvasc] 10 mg PO HS 08/23/15 [History] glipiZIDE [Glucotrol] 5 mg PO DAILY 04/22/20 [History] Rivaroxaban [Xarelto] 20 mg PO W/SUPPER 12/25/21 [History] Lacosamide [Vimpat] 150 mg PO BID 30 Days #60 tab 12/27/21 [Rx] Losartan [Cozaar] 100 mg PO DAILY 60 Days #120 tab 12/27/21 [Rx] Follow up Appointment(s)/Referral(s): Homa Flood MD [STAFF PHYSICIAN] - 01/02/22 3:00 pm (main office. ) Conor Haley MD [REFERRING] - 1-2 Days (Establish care with recommended PCP) Rush Harris MD [Medical Doctor] - 1 Week (office to call you to schedule,information faxed over. ) Patient Instructions/Handouts: Seizure/Epilepsy Discharge Instructions & Follow-Up, A-fib (Atrial Fibrillation) (DC), Bradycardia (DC) Activity/Diet/Wound Care/Special Instructions: Activity: As tolerated. Take breaks as needed. Diet: Heart healthy and carb consistent diet. Avoid salts, or foods with hidden salts such as canned or boxed foods and frozen dinners. Extra salt makes your heart work harder and traps the fluid in your body for longer. Special Instructions: Take all of your medications as directed and remember to keep all of your doctor's appointments and follow-up as needed. [place] state law states no driving until seizure free for 6 months. It is also important to avoid climbing ladders, operating dangerous or heavy machinery or unsupervised swimming until seizure free for 6 months. Thank you for allowing us to participate in your care, it was truly a pleasure having you for our patient!!! Discharge Disposition: HOME SELF-CARE
[2021-12-27 10:56] LABS: ALT 27 U/L (4-49); AST 42 U/L (17-59); African American GFR (CKD) >90 (>60 ml/min/1.73 sqM); Albumin 3.4 g/dL (3.5-5.0); Alkaline Phosphatase 75 U/L (38-126); Anion Gap 10 mmol/L; Blood Urea Nitrogen 12 mg/dL (9-20); Calcium 8.4 mg/dL (8.4-10.2); Carbon Dioxide 27 mmol/L (22-30); Chloride 100 mmol/L (98-107); Glucose 89 mg/dL (74-99); Magnesium 1.8 mg/dL (1.6-2.3); Non-African American GFR(CKD) 83 (>60 ml/min/1.73 sqM); Potassium 3.4 mmol/L (3.5-5.1); Sodium 137 mmol/L (137-145); Total Bilirubin 1.4 mg/dL (0.2-1.3); Total Protein 5.8 g/dL (6.3-8.2)
[2021-12-27 11:52] LABS: Glucose,Whole Blood 102 mg/dL (70-110)
[2021-12-27 12:52] VITALS: BP 150/95; PULSE 75; RESP 16; TEMP 97.8
--- NOTE | 2021-12-28 13:02 | PN ---
PROGRESS NOTE SUBJECTIVE: This gentleman was seen by me because of atrial fibrillation and slow rate. He has had what seems to be a seizure 48 hours ago and was also on a beta rafa. His heart rate, however, has improved. He has chronic atrial fibrillation. The rate is in the 50s. He is asymptomatic. Neurologically more stable. Blood pressure control is slightly suboptimal. I will increase the Cozaar to 100 mg daily. Continue his other medications. From a cardiac standpoint, no further intervention is necessary. Avoid rate control medications and whenever the neurologist and admitting doctor feels appropriate, he can be discharged. OBJECTIVE: VITAL SIGNS: Stable. Systolic blood pressure was 170. I am increasing losartan. Heart rate is about 55 beats per minute. NECK: JVD, 1 cm. No carotid bruit. HEART: S1 and S2 with irregular rhythm. Short systolic murmur. LUNGS: Clear. ABDOMEN: Exam is unchanged. LOWER EXTREMITIES: Exam is unchanged. CENTRAL NERVOUS SYSTEM: Assessment is per Neurology. MMODL / IJN: [id number] /
== END 2021-12-27 13:52 | disposition home or self-care (01) | DRG 100 ==
LOC: EC 15:32 → 3SCARD 18:28
PROVIDERS: ADMIT Student in an Organized Health Care Education/Training Program; ATTEND Student in an Organized Health Care Education/Training Program
DX: G40.909 Epilepsy, unspecified, not intractable, without status epilepticus (principal); G93.41 Metabolic encephalopathy; I48.21 Permanent atrial fibrillation; I48.92 Unspecified atrial flutter; N17.9 Acute kidney failure, unspecified; I50.30 Unspecified diastolic (congestive) heart failure; D72.829 Elevated white blood cell count, unspecified; E11.9 Type 2 diabetes mellitus without complications; R77.8 Other specified abnormalities of plasma proteins; E78.5 Hyperlipidemia, unspecified; G89.29 Other chronic pain; F12.10 Cannabis abuse, uncomplicated; I11.0 Hypertensive heart disease with heart failure; M54.2 Cervicalgia; J44.9 Chronic obstructive pulmonary disease, unspecified; S00.81XA Abrasion of other part of head, initial encounter; M54.6 Pain in thoracic spine; Z79.01 Long term (current) use of anticoagulants; Z79.84 Long term (current) use of oral hypoglycemic drugs; Z79.899 Other long term (current) drug therapy; Z80.7 Family history of other malignant neoplasms of lymphoid, hematopoietic and related tissues; Z82.49 Family history of ischemic heart disease and other diseases of the circulatory system; Z83.3 Family history of diabetes mellitus; T14.90XS Injury, unspecified, sequela; V49.9XXS Car occupant (driver) (passenger) injured in unspecified traffic accident, sequela; Z28.310 Unvaccinated for COVID-19; Z28.21 Immunization not carried out because of patient refusal; Z88.6 Allergy status to analgesic agent; Z88.0 Allergy status to penicillin
CPT/HCPCS: 36415; 70450; 71045; 72125; 80048; 80053; 80306; 80320; 81001; 82140; 82550; 83735; 84100; 84443; 84484; 85025; 85610; 85730; 90471; 90715; 93005; 93306; 96361; 96374; 99285

== ENCOUNTER → 2022-02-06 | Outpatient (CLI) | payer MEDICARE ==
[2022-02-06 14:19] LABS: Basophils # (A) 0.08 X 10*3/uL (0.00-0.10); Basophils % (A) 0.8 %; Eosinophils # (A) 0.16 X 10*3/uL (0.04-0.35); Eosinophils % (A) 1.5 %; Immature Grans, Automated 0.4 %; Lymphocytes # (A) 1.25 X 10*3/uL (0.90-5.00); Lymphocytes % (A) 12.1 %; MCH 32.8 pg (27.0-32.0); MCHC 33.3 g/dL (32.0-37.0); MCV 98.4 fL (80.0-97.0); Mean Platelet Volume 9.9 fL (9.5-12.2); Monocytes # (A) 0.68 X 10*3/uL (0.20-1.00); Monocytes % (A) 6.6 %; NRBC Per 100 WBC 0 /100 WBCS (0.0-0.0); Neutrophils # (A) 8.14 X 10*3/uL (1.80-7.70); Neutrophils % (A) 78.6 %; Platelet Count 293 X 10*3/uL (140-440); RBC 4.88 X 10*6/uL (4.40-5.60); RDW 12.9 % (11.5-14.5); WBC 10.35 X 10*3/uL (4.50-10.00)
[2022-02-06 14:29] LABS: African American GFR (CKD) 50.5 (60.0-200.0); Albumin 4.1 g/dL (3.8-4.9); Albumin/Globulin Ratio 1.45 (1.60-3.17); Anion Gap 11.8 mmol/L (10.00-18.00); BUN/Creat Ratio 13.23 Ratio (12.00-20.00); Blood Urea Nitrogen 21.3 mg/dL (9.0-27.0); Calcium 9.1 mg/dL (8.7-10.3); Carbon Dioxide 27.4 mmol/L (20.0-27.5); Globulin 2.8 g/dL (1.6-3.3); Non-African American GFR(CKD) 43.6 (60.0-200.0); Potassium 3.9 mmol/L (3.5-5.5); Total Bilirubin 0.9 mg/dL (0.30-1.20); Total Protein 6.9 g/dL (6.2-8.2)
== END | disposition home or self-care (01) ==
LOC: LABWHC1 08:56
PROVIDERS: ATTEND Family Medicine
DX: E78.5 Hyperlipidemia, unspecified (principal)
CPT/HCPCS: 36415; 80053; 85025

== ENCOUNTER → 2022-02-08 | Outpatient (CLI) | payer MEDICARE ==
--- NOTE | 2022-02-08 12:45 | MR ---
EXAMINATION TYPE: MR lumbar spine wo con DATE OF EXAM: 02/08/2022 12:02 PM COMPARISON: None. CLINICAL INDICATION:Male, 66 years old with history of M54.16 RADICULOPATHY, LUMBAR REGION; TECHNIQUE: Multi planar, multi sequence imaging was performed utilizing: T1-weighted, T2-weighted, a nd turbo inversion recovery imaging of the lumbar spine. IV Contrast: None. FINDINGS: Alignment: The lumbar vertebral bodies have preserved heights and alignment. Cord: The conus medullaris and the distal spinal cord appear unremarkable with regards to their signa l intensity and morphology. Bones/Discs: There is a slightly heterogenous probably high T2/T1 signal lesion within the L1 vertebr al body measuring up to 14 mm felt to represent vertebral body hemangioma.. Multilevel degenerative disc disease is noted and most pronounced at the L4-L5. There is adjoining bony edema of the endplate s and inversion recovery signal. Superior endplate concave deformity of L3 without bony edema consist ent with chronic injury. L1-L2: No evidence of significant spinal canal stenosis or neural foraminal stenosis. L2-L3: Disc bulge and facet joint arthropathy result in moderate spinal canal stenosis and mild to mo derate bilateral neural foraminal stenosis. L3-L4: Disc bulge and facet joint arthropathy result in moderate spinal canal stenosis and moderate b ilateral neural foraminal stenosis. L4-L5: Disc bulge with extrusion resulting in severe spinal canal stenosis. Additional facet joint ar thropathy resulting in moderate to severe right neural foraminal stenosis the left neural foramen is mildly narrowed. L5-S1: Disc bulge with facet joint arthropathy without significant spinal canal stenosis. There is bi lateral neural foraminal stenosis. Other findings: Bilateral high T2 signal renal cyst. IMPRESSION: 1. L4-L5 bulge with herniation with severe spinal canal stenosis. Associated right moderate to sever e neural foraminal stenosis at this level. 2. L2-L3 and L3-L4 moderate spinal canal stenosis secondary to disc bulging and facet joint arthropa thy.
== END | disposition home or self-care (01) ==
LOC: RADMRIMAIN 11:02
PROVIDERS: ATTEND Family Medicine
DX: M51.16 Intervertebral disc disorders with radiculopathy, lumbar region (principal); M47.26 Other spondylosis with radiculopathy, lumbar region; M48.061 Spinal stenosis, lumbar region without neurogenic claudication; M99.73 Connective tissue and disc stenosis of intervertebral foramina of lumbar region
CPT/HCPCS: 72148